=== PATIENT | female | born 1950 | race Caucasian/White ===

== ENCOUNTER → 2016-06-25 | Outpatient (CLI) | payer MEDICAID ==
--- NOTE | 2016-06-25 15:30 | US ---
EXAMINATION TYPE: US kidneys/renal and bladder DATE OF EXAM: 06/25/2016 3:13 PM COMPARISON: No previous CLINICAL HISTORY: R01.1 Cardiac murmur, N18.3 CKD. CKD stage 3 EXAM MEASUREMENTS: Right Kidney: 9.2 x 3.8 x 5.3 cm Left Kidney: 10.7 x 5.3 x 4.8 cm Right Kidney: wnl Left Kidney: wnl Bladder: wnl Bilateral Jets seen: yes There is no evidence for hydronephrosis at this point in time. No nephrolithiasis is seen. No nic s are identified. The urinary bladder is anechoic. Bilateral ureteral jets are seen. IMPRESSION: Normal renal ultrasound.
--- NOTE | 2016-06-26 07:29 | ECHOF ---
Referral Reason:R01.1 Cardiac murmur MEASUREMENTS -------- HEIGHT: 165.1 cm WEIGHT: 74.4 kg BP: 122/82 RVIDd: 3.5 cm (< 3.3) IVSd: 1.5 cm (0.6 - 1.1) LVIDd: 3.5 cm (3.9 - 5.3) LVPWd: 1.2 cm (0.6 - 1.1) IVSs: 1.8 cm LVIDs: 2.2 cm LVPWs: 1.5 cm LA Diam: 2.9 cm (2.7 - 3.8) LAESV Index (A-L): 24.51 ml/m Ao Diam: 2.9 cm (2.0 - 3.7) AV Cusp: 1.4 cm (1.5 - 2.6) LA Diam: 2.8 cm (2.7 - 3.8) MV EXCURSION: 14.317 mm (> 18.000) MV EF SLOPE: 53 mm/s (70 - 150) EPSS: 0.4 cm MV E Janes: 0.71 m/s MV DecT: 303 ms MV A Janes: 0.89 m/s MV E/A Ratio: 0.80 AV maxP.53 mmHg AV meanP.99 mmHg RAP: 5.00 mmHg FINDINGS -------- Sinus rhythm. This was a technically good study. There is moderate concentric left ventricular hypertrophy. Overall left ventricular systolic function is normal with, an EF between 55 - 60 %. The right ventricle is mildly enlarged. Normal LA size by volume 22+/-6 ml/m2. The right atrium is normal in size. Aortic valve is trileaflet and is mildly thickened. Peak/mean gradient across the Aortic Valve is 12.53mmHg / 5.99mmHg. The mitral valve leaflets are mildly thickened. Mild mitral annular calcification present. There is trace mitral regurgitation. Mild tricuspid regurgitation present. Right ventricular systolic pressure is normal at < 35 mmHg. Trace/mild (physiologic) pulmonic regurgitation. The aortic root size is normal. Normal inferior vena cava with normal inspiratory collapse consistent with estimated right atrial pressure of 5 mmHg. There is no pericardial effusion. CONCLUSIONS -------- 1. Sinus rhythm. 2. The mitral valve leaflets are mildly thickened. 3. Mild mitral annular calcification present. 4. There is trace mitral regurgitation. 5. Mild tricuspid regurgitation present. 6. Right ventricular systolic pressure is normal at < 35 mmHg. 7. The aortic root size is normal. 8. Normal inferior vena cava with normal inspiratory collapse consistent with estimated right atrial pressure of 5 mmHg. 9. There is no pericardial effusion. 10. This was a technically good study. 11. There is moderate concentric left ventricular hypertrophy. 12. Overall left ventricular systolic function is normal with, an EF between 55 - 60 %. 13. The right ventricle is mildly enlarged. 14. Normal LA size by volume 22+/-6 ml/m2. 15. The right atrium is normal in size. 16. Aortic valve is trileaflet and is mildly thickened. 17. Peak/mean gradient across the Aortic Valve is 12.53mmHg / 5.99mmHg. CELLULAR TOWER CLIMBER: Phyllis Foster RDCS
== END | disposition home or self-care (01) ==
LOC: RADUSMAIN 14:50
PROVIDERS: ATTEND Family Medicine
DX: N18.3 Chronic kidney disease, stage 3 (moderate) (principal); I08.1 Rheumatic disorders of both mitral and tricuspid valves
CPT/HCPCS: 76770; 93306

== ENCOUNTER 2016-07-24 19:01 | Observation (INO) | payer MEDICAID ==
[2016-07-24] MEDS ORDERED: MORPHINE SULFATE 4 MG/ML SYRINGE IV STA (19:27)
[2016-07-24] MEDS ORDERED: SODIUM CHLORIDE 0.9% 1,000 ML IV STA (19:27)
--- NOTE | 2016-07-24 19:31 | ED ---
General Adult HPI - General Chief complaint: Chest Pain Stated complaint: chest pain Time Seen by Provider: 07/24/16 19:14 Source: patient, RN notes reviewed Mode of arrival: wheelchair Limitations: no limitations - History of Present Illness Initial comments: Patient is a pleasant 66-year-old female presenting to emergency Department with chest discomfort. Onset was around 2:00. Symptoms have been persistent. Symptoms are somewhat severe. Patient was nauseated earlier. Patient feels slightly short of breath. No diaphoresis. No history of similar symptoms previously. Discomfort is described as tightness. Discomfort is the right side of the chest. Discomfort remained will be somewhat in the abdomen. Patient states there is some mild radiation towards the back as well. - Related Data Home Medications Medication Instructions Recorded Confirmed Aspirin EC [Ecotrin Low Dose] 81 mg PO DAILY 07/24/16 07/24/16 Chlorthalidone 25 mg PO DAILY 07/24/16 07/24/16 Allergies Allergy/AdvReac Type Severity Reaction Status Date / Time No Known Allergies Allergy Verified 07/24/16 19:42 Review of Systems ROS Statement: Those systems with pertinent positive or pertinent negative responses have been documented in the HPI. ROS Other: All systems not noted in ROS Statement are negative. Constitutional: Denies: fever Eyes: Denies: eye pain ENT: Denies: ear pain Respiratory: Reports: dyspnea. Denies: cough Cardiovascular: Reports: chest pain Endocrine: Denies: fatigue Gastrointestinal: Reports: abdominal pain Genitourinary: Denies: dysuria Musculoskeletal: Denies: back pain Skin: Denies: rash Neurological: Denies: weakness Past Medical History Past Medical History: Hypertension, Thyroid Disorder History of Any Multi-Drug Resistant Organisms: None Reported Additional Past Surgical History / Comment(s): thyroid Past Psychological History: No Psychological Hx Reported Smoking Status: Never smoker Past Alcohol Use History: Rare Past Drug Use History: None Reported General Exam Limitations: no limitations General appearance: alert, in no apparent distress Head exam: Present: atraumatic Eye exam: Present: normal appearance, PERRL ENT exam: Present: normal oropharynx Neck exam: Present: normal inspection Respiratory exam: Present: normal lung sounds bilaterally Cardiovascular Exam: Present: regular rate, normal rhythm Expanded Peripheral pulses: 2+: Radial (R), Radial (L), Dorsalis Pedis (R), Dorsalis Pedis (L) GI/Abdominal exam: Present: soft, tenderness (Mild epigastric tenderness to palpation), normal bowel sounds. Absent: distended, guarding, rebound, rigid, pulsatile mass Extremities exam: Present: normal inspection. Absent: pedal edema, calf tenderness Back exam: Present: normal inspection. Absent: tenderness Neurological exam: Present: alert Psychiatric exam: Present: normal affect, normal mood Skin exam: Absent: rash Course Vital Signs 07/24/16 07/24/16 07/24/16 19:06 19:39 20:09 Temperature 98.4 F Pulse Rate 89 68 Respiratory 20 16 16 Rate Blood Pressure 176/92 158/78 O2 Sat by Pulse 97 98 Oximetry EKG Findings - EKG Comments: EKG Findings:: Normal sinus rhythm at 78. MS 174. QRS 82. QT 398. QTC 453. Normal axis. Normal QRS. Nonspecific ST-T. Medical Decision Making - Medical Decision Making Patient reexamined and resting comfortably in bed. Patient and family updated. Case was discussed in detail with Dr. Coleman, who will admit his patient. - Lab Data Result diagrams: 07/24/16 19:35 07/24/16 19:35 Lab Results 07/24/16 07/24/16 07/24/16 Range/Units 19:35 19:35 19:35 WBC 8.7 (3.8-10.6) k/uL RBC 4.25 (3.80-5.40) m/uL Hgb 12.9 (11.4-16.0) gm/dL Hct 37.8 (34.0-46.0) % MCV 89.0 (80.0-100.0) fL MCH 30.3 (25.0-35.0) pg MCHC 34.1 (31.0-37.0) g/dL RDW 13.0 (11.5-15.5) % Plt Count 262 (150-450) k/uL Neutrophils % 77 % Lymphocytes % 17 % Monocytes % 4 % Eosinophils % 0 % Basophils % 0 % Neutrophils # 6.7 (1.3-7.7) k/uL Lymphocytes # 1.5 (1.0-4.8) k/uL Monocytes # 0.3 (0-1.0) k/uL Eosinophils # 0.0 (0-0.7) k/uL Basophils # 0.0 (0-0.2) k/uL PT (9.0-12.0) sec INR (<1.1) APTT (22.0-30.0) sec D-Dimer (<0.60) mg/L FEU Sodium 136 L (137-145) mmol/L Potassium 3.1 L (3.5-5.1) mmol/L Chloride 97 L (98-107) mmol/L Carbon Dioxide 29 (22-30) mmol/L Anion Gap 10 mmol/L BUN 24 H (7-17) mg/dL Creatinine 1.11 H (0.52-1.04) mg/dL Est GFR (MDRD) Af Amer 60 (>60 ml/min/1.73 sqM) Est GFR (MDRD) Non-Af 49 (>60 ml/min/1.73 sqM) Glucose 154 H (74-99) mg/dL Calcium 10.6 H (8.4-10.2) mg/dL Magnesium 1.8 (1.6-2.3) mg/dL Total Bilirubin 0.6 (0.2-1.3) mg/dL AST 19 (14-36) U/L ALT 29 (9-52) U/L Alkaline Phosphatase 93 (38-126) U/L Total Creatine Kinase 68 (30-135) U/L CK-MB (CK-2) 1.4 (0.0-2.4) ng/mL CK-MB (CK-2) Rel Index 2.1 Troponin I <0.012 (0.000-0.034) ng/mL Total Protein 6.9 (6.3-8.2) g/dL Albumin 4.2 (3.5-5.0) g/dL Amylase 91 (30-110) U/L Lipase 121 (23-300) U/L 07/24/16 Range/Units 19:35 WBC (3.8-10.6) k/uL RBC (3.80-5.40) m/uL Hgb (11.4-16.0) gm/dL Hct (34.0-46.0) % MCV (80.0-100.0) fL MCH (25.0-35.0) pg MCHC (31.0-37.0) g/dL RDW (11.5-15.5) % Plt Count (150-450) k/uL Neutrophils % % Lymphocytes % % Monocytes % % Eosinophils % % Basophils % % Neutrophils # (1.3-7.7) k/uL Lymphocytes # (1.0-4.8) k/uL Monocytes # (0-1.0) k/uL Eosinophils # (0-0.7) k/uL Basophils # (0-0.2) k/uL PT 11.6 (9.0-12.0) sec INR 1.2 (<1.1) APTT 22.9 (22.0-30.0) sec D-Dimer 0.57 (<0.60) mg/L FEU Sodium (137-145) mmol/L Potassium (3.5-5.1) mmol/L Chloride (98-107) mmol/L Carbon Dioxide (22-30) mmol/L Anion Gap mmol/L BUN (7-17) mg/dL Creatinine (0.52-1.04) mg/dL Est GFR (MDRD) Af Amer (>60 ml/min/1.73 sqM) Est GFR (MDRD) Non-Af (>60 ml/min/1.73 sqM) Glucose (74-99) mg/dL Calcium (8.4-10.2) mg/dL Magnesium (1.6-2.3) mg/dL Total Bilirubin (0.2-1.3) mg/dL AST (14-36) U/L ALT (9-52) U/L Alkaline Phosphatase (38-126) U/L Total Creatine Kinase (30-135) U/L CK-MB (CK-2) (0.0-2.4) ng/mL CK-MB (CK-2) Rel Index Troponin I (0.000-0.034) ng/mL Total Protein (6.3-8.2) g/dL Albumin (3.5-5.0) g/dL Amylase (30-110) U/L Lipase (23-300) U/L - Radiology Data Radiology results: image reviewed (Chest x-ray shows no acute process) Disposition Clinical Impression: Chest pain Disposition: ADMITTED IP TO THIS HOSP
[2016-07-24 19:50] LABS: Basophils % (A) 0 %; CH 31.4; CHCM 35.4; Eosinophils % (A) 0 %; HCT 37.8 % (34.0-46.0); HDW 2.72; HGB 12.9 gm/dL (11.4-16.0); Luc # (Auto) 0.11; Luc % (Auto) 1; Lymphocytes # (A) 1.5 k/uL (1.0-4.8); Lymphocytes % (A) 17 %; MCH 30.3 pg (25.0-35.0); MCHC 34.1 g/dL (31.0-37.0); Mean Platelet Volume 6.9; Monocytes # (A) 0.3 k/uL (0-1.0); Monocytes % (A) 4 %; Neutrophils # (A) 6.7 k/uL (1.3-7.7); Neutrophils % (A) 77 %; RBC 4.25 m/uL (3.80-5.40); WBC 8.7 k/uL (3.8-10.6); WBC (Perox) 8.99
[2016-07-24 20:04] LABS: INR 1.2 (<1.1); Partial Thromboplastin Time 22.9 sec (22.0-30.0); Prothrombin Time 11.6 sec (9.0-12.0)
--- NOTE | 2016-07-24 20:06 | XR ---
EXAMINATION TYPE: XR chest 2V DATE OF EXAM: 07/24/2016 7:52 PM COMPARISON: NONE INDICATION: Chest pain TECHNIQUE: Single frontal view of the chest is obtained. FINDINGS: The heart size is normal. The pulmonary vasculature is normal. The lungs are clear. IMPRESSION: 1. No acute pulmonary process.
[2016-07-24 20:08] LABS: Creatine Kinase 68 U/L (30-135)
[2016-07-24 20:10] LABS: Calcium 10.6 mg/dL (8.4-10.2); Magnesium 1.8 mg/dL (1.6-2.3); Potassium 3.1 mmol/L (3.5-5.1); Total Bilirubin 0.6 mg/dL (0.2-1.3); Total Protein 6.9 g/dL (6.3-8.2)
[2016-07-24 20:21] LABS: Creatine Kinase MB 1.4 ng/mL (0.0-2.4); Troponin I <0.012 ng/mL (0.000-0.034)
[2016-07-24] MEDS ORDERED: POTASSIUM CHLORIDE ER 20 MEQ TAB.ER PO STA (20:44)
[2016-07-24] MEDS ORDERED: ASPIRIN 81 MG CHEW PO STA (20:45)
[2016-07-24] MEDS ORDERED: NITROGLYCERIN SL TABS 0.4 MG TAB SUBLINGUAL PRN (20:45)
[2016-07-24] MEDS ORDERED: ONDANSETRON 4 MG/2 ML VIAL IVP STA (21:01)
[2016-07-24] MEDS ORDERED: RX INFO: IV CONTRAST WAS GIVEN 1 EACH MISC MISCELLANE PRN (21:08)
--- NOTE | 2016-07-24 21:43 | CT ---
CT CHEST FOR PULMONARY EMBOLISM. EXAMINATION TYPE: CT angio chest DATE OF EXAM: 07/24/2016 9:35 PM INDICATION: Pt states of chest pain and SOB. CT DLP: 213.9 mGycm, Automated exposure control for dose reduction was used. CONTRAST: Patient injected with 80 mL of Visipaque 320. COMPARISON: NONE TECHNIQUE: CT of the chest is performed on a spiral scan at 2 mm thick sections. Study is performed with intravenous contrast timed for evaluation for pulmonary embolism. This will limit additional po rtions of the evaluation. 3-D MIP images reconstructed by the technologist are reviewed on the compu ter in the coronal and sagittal planes. FINDINGS: No persistent filling defects are evident to suggest an acute pulmonary embolism. No mediastinal or hilar adenopathy enlarged by CT criteria is evident. The ascending aorta diameter at the level of the main pulmonary artery is 4.3 cm. The main pulmonary artery diameter at the bifur cation is 3.1 cm. No obvious dissection of the aorta is evident. Lung windows are clear. There is a small hiatal hernia. Limited CT section through the upper abdomen are unremarkable. Thyroid is somewhat heterogenous. IMPRESSIONS: 1. No acute pulmonary embolism. 2. Hiatal hernia. 3. Aneurysmal dilatation of the ascending thoracic aorta at 4.3 cm.
[2016-07-24 21:51] VITALS: BMI 27.4
[2016-07-24] MEDS ORDERED: ACETAMINOPHEN TAB 325 MG TAB PO PRN (22:26)
[2016-07-24] MEDS ORDERED: HYDROcodone/APAP 5-325MG 1 EACH TAB PO PRN (22:27)
[2016-07-24] MEDS ORDERED: HYDROmorphone 1 MG/ML 1 ML SYRINGE IVP PRN (22:28)
[2016-07-24] MEDS ORDERED: ONDANSETRON 4 MG/2 ML VIAL IVP PRN (22:29)
[2016-07-24] MEDS: NITROGLYCERIN OINT 1 INCH/GM PACKET TOPICAL SCH (23:25)
[2016-07-25 02:12] LABS: Creatine Kinase 56 U/L (30-135)
[2016-07-25 02:25] LABS: Creatine Kinase MB 1.7 ng/mL (0.0-2.4); Troponin I <0.012 ng/mL (0.000-0.034)
[2016-07-25] MEDS: NITROGLYCERIN OINT 1 INCH/GM PACKET TOPICAL SCH ×2 (05:14→11:56)
[2016-07-25 07:28] VITALS: RESP 18
[2016-07-25 07:50] LABS: Potassium 3.8 mmol/L (3.5-5.1)
--- NOTE | 2016-07-25 08:05 | US ---
EXAMINATION TYPE: US gallbladder DATE OF EXAM: 07/25/2016 7:54 AM COMPARISON: NONE CLINICAL HISTORY: pain. RUQ pain, nausea EXAM MEASUREMENTS: Liver Length: 17.2 cm Gallbladder Wall: 0.6 cm CBD: 0.6 cm Right Kidney: 10.2 x 4.0 x 5.0 cm Pancreas: Head and body appear normal. Tail of pancreas obscured by bowel gas. Liver: heterogeneous hyperechoic area = 3.5 x 2.8 x 3.0cm findings can reflect a hemangioma in th e proper clinical setting. Other etiologies are not excluded at this time. Gallbladder: mobile stones, thickened GB wall Evidence for sonographic Lin's sign: Yes CBD: upper limits of normal Right Kidney: no evidence of hydronephrosis or mass IMPRESSION: 1. Cholelithiasis with thickened gallbladder wall of 0.58 cm. Findings could correlate with acute cho lecystitis. Clinical correlation and follow-up is recommended. 2. Probable hemangioma within the liver. Confirmation with contrast CT is recommended. Other etiologi es are not excluded at this time
[2016-07-25 08:08] LABS: Creatine Kinase 50 U/L (30-135)
[2016-07-25 08:20] LABS: Creatine Kinase MB 1.6 ng/mL (0.0-2.4); Troponin I <0.012 ng/mL (0.000-0.034)
--- NOTE | 2016-07-25 08:20 | P.CRDCN ---
History of Present Illness Consult date: 07/25/16 History of present illness: This is a 66-year-old female with history of hypertensive cardiovascular disease who was being treated with Cozaar and also diuretic who came to the hospital with complaints of stabbing pain in the right upper quadrant and also in the right breast area. It was constant from 2:00 and midnight. It was not respirophasic. It did not change with movements of the chest. Mildly nauseated. No shortness of breath. Since been that patient has been stable. She does have some tenderness in the right upper quadrant. Cardiac enzymes are negative. EKG did not reveal any acute changes. Ultrasound of the abdomen showed evidence of cholelithiasis and possible cholecystitis. She had an echocardiogram done in June which showed evidence of mild aortic stenosis with preserved LV function. At this point, her pains are more consistent with gallbladder issue . May need a surgical evaluation. Review of Systems REVIEW OF SYSTEMS: CONSTITUTIONAL:. Patient is doing well. No complaints of fever or chills EYES: Denies diplopia, blurring of vision EARS, NOSE, MOUTH, THROAT: Denies headaches, denies sore throat. CARDIOVASCULAR: As per HPI RESPIRATORY: Denies shortness of breath, denies cough. GASTROINTESTINAL: Complaints of abdominal pain GENITOURINARY: Denies hematuria, denies infections. MUSKULOSKELETAL: Denies pain, denies swelling. Denies any cramps or claudication INTEGUMENTARY: Denies rash, denies eczema. NEUROLOGICAL: Denies focal weakness, or visual disturbance. Denies any dizziness or syncope PSYCHIATRIC: Denies anxiety, denies depression. HEMATOLOGIC/LYMPHATIC: Denies any bleeding, denies enlarged lymph nodes. Past Medical History Past Medical History: Hypertension, Thyroid Disorder Additional Past Medical History / Comment(s): IBS, murmer, seasonal asthma History of Any Multi-Drug Resistant Organisms: None Reported Past Surgical History: Tonsillectomy Additional Past Surgical History / Comment(s): thyroid Past Anesthesia/Blood Transfusion Reactions: No Reported Reaction Past Psychological History: No Psychological Hx Reported Smoking Status: Never smoker Past Alcohol Use History: Rare Past Drug Use History: None Reported - Past Family History Mother Family Medical History: AFIB, Diabetes Mellitus Medications and Allergies Home Medications Medication Instructions Recorded Confirmed Type Aspirin EC [Ecotrin Low Dose] 81 mg PO DAILY 07/24/16 07/24/16 History Chlorthalidone 25 mg PO DAILY 07/24/16 07/24/16 History Allergies Allergy/AdvReac Type Severity Reaction Status Date / Time No Known Allergies Allergy Verified 07/24/16 21:52 Physical Exam Vitals: Vital Signs Temp Pulse Resp BP Pulse Ox 07/25/16 07:27 99.0 F 83 18 131/72 95 07/25/16 03:47 76 16 07/25/16 03:46 99.3 F 76 16 129/80 96 07/24/16 23:20 70 18 07/24/16 21:40 98.2 F 62 18 163/82 96 Intake and Output 07/24/16 07/25/16 07/25/16 22:59 06:59 14:59 Intake Total 300 800 Balance 300 800 Intake: Intake, IV Titration 200 800 Amount Sodium Chloride 0.9% 1, 200 800 000 ml @ 100 mls/hr IV . Q10H STA Rx#:[id number] Oral 100 Other: Voiding Method Toilet # Voids 1 Weight 74.843 kg GENERAL EXAM: Patient is alert and oriented and doesn't appear to be in any acute distress HEENT: Normocephalic. Normal reaction of pupils, equal size, normal range of extraocular motion. No erythema or exudates in the throat. NECK: No masses, no nuchal rigidity. CHEST: No chest wall deformity. LUNGS: Equal air entry with no crackles or wheeze. HEART: S1 and S2 normal with no audible mumurs or gallops. Regular rhythm, femorals equal on both sides.. ABDOMEN: Tenderness in the right upper quadrant SKIN: No rashes CENTRAL NERVOUS SYSTEM: No focal deficits. EXTREMITIES: No cyanosis, clubbing or edema. Results 07/24/16 19:35 07/25/16 06:18 Cardiac Enzymes 07/25/16 Range/Units 01:31 CK-MB (CK-2) 1.7 (0.0-2.4) ng/mL Troponin I <0.012 (0.000-0.034) ng/mL Lipids 07/25/16 Range/Units 06:18 Triglycerides 42 (<150) mg/dL Cholesterol 149 (<200) mg/dL HDL Cholesterol 65 H (40-60) mg/dL Comprehensive Metabolic Panel 07/25/16 Range/Units 06:18 Sodium 138 (137-145) mmol/L Potassium 3.8 (3.5-5.1) mmol/L Chloride 102 (98-107) mmol/L Carbon Dioxide 30 (22-30) mmol/L Current Medications Generic Name Dose Route Start Last Admin Trade Name Freq PRN Reason Stop Dose Admin Acetaminophen 650 mg 07/24/16 22:26 Tylenol Tab PO Q8HR PRN Fever and/ or Pain Hydrocodone Bitart/Acetaminophen 1 each 07/24/16 22:27 [place] 5-325 PO Q4HR PRN Pain Aspirin 325 mg 07/25/16 09:00 Aspirin PO DAILY ELIZABETH Hydromorphone HCl 1 mg 07/24/16 22:28 Dilaudid IVP Q4HR PRN severe pain 5-10 IF NPO Miscellaneous Information 1 each 07/24/16 21:08 Rx Info: Iv Contrast Was Given MISCELLANE 07/26/16 21:08 DAILY PRN Per Protocol Nitroglycerin 1 inch 07/25/16 00:00 07/25/16 05:14 Nitro-Bid Oint TOPICAL Not Given Q6HR [facility] Nitroglycerin 0.4 mg 07/24/16 20:45 Nitrostat SUBLINGUAL Q5M PRN Chest Pain Ondansetron HCl 4 mg 07/24/16 22:29 Zofran IVP Q6HR PRN Nausea And Vomiting Intake and Output 07/24/16 07/25/16 07/25/16 22:59 06:59 14:59 Intake Total 300 800 Balance 300 800 Intake: Intake, IV Titration 200 800 Amount Sodium Chloride 0.9% 1, 200 800 000 ml @ 100 mls/hr IV . Q10H STA Rx#:[id number] Oral 100 Other: Voiding Method Toilet # Voids 1 Weight 74.843 kg 07/25/16 06:18 EKG Interpretations (text) Sinus rhythm Assessment and Plan (1) Right upper quadrant pain Status: Acute (2) Cholecystitis Status: Acute (3) Hypertension Status: Acute (4) Hypokalemia Status: Acute (5) Aneurysm of ascending aorta Status: Acute Plan: Patient's symptoms are suggestive of cholecystitis. EKGs and cardiac enzymes studies are within normal limits. Patient does have systolic murmur consistent with mild aortic stenosis. Patient did have an echocardiogram in June of this year which he given a mild gradient across the aortic valve with preserved LV function. Aortic valve is tricuspid. Computed tomography scan of the chest showed mild aneurysm of the ascending aorta. No further cardiac workup at this time. Thank you
[2016-07-25] MEDS ORDERED: ASPIRIN 325 MG TAB PO SCH (09:00)
--- NOTE | 2016-07-25 11:34 | ECHOF ---
Referral Reason:ATTN: ascending aorta MEASUREMENTS -------- HEIGHT: 165.1 cm WEIGHT: 74.8 kg BP: IVSd: 1.6 cm (0.6 - 1.1) LVIDd: 3.7 cm (3.9 - 5.3) LVPWd: 1.0 cm (0.6 - 1.1) IVSs: 1.7 cm LVIDs: 1.9 cm LVPWs: 1.1 cm LAESV Index (A-L): 24.92 ml/m Ao Diam: 3.8 cm (2.0 - 3.7) AV Cusp: 2.2 cm (1.5 - 2.6) LA Diam: 3.5 cm (2.7 - 3.8) MV EXCURSION: 16.659 mm (> 18.000) MV EF SLOPE: 96 mm/s (70 - 150) EPSS: 0.2 cm MV E Janes: 0.91 m/s MV DecT: 166 ms MV A Janes: 1.03 m/s MV E/A Ratio: 0.89 AV maxP.76 mmHg AV meanP.91 mmHg RAP: 5.00 mmHg RVSP: 31.62 mmHg FINDINGS -------- Sinus rhythm. This was a technically adequate study. There is moderate concentric left ventricular hypertrophy. Overall left ventricular systolic function is normal with, an EF between 55 - 60 %. The right ventricle is normal in size. Normal LA size by volume 22+/-6 ml/m2. The right atrial size is normal. Peak/mean gradient across the Aortic Valve is 19.76mmHg / 10.91mmHg. Mild mitral annular calcification present. Mild mitral regurgitation is present. Mild tricuspid regurgitation present. There is no evidence of pulmonary hypertension. The right ventricular systolic pressure, as measured by Doppler, is 31.62mmHg. There is no pulmonic regurgitation present. Dilatation of the Ascending Aortic measures 4.cm. Echo free space may represent effusion or a pericardial fat pad. CONCLUSIONS -------- 1. There is moderate concentric left ventricular hypertrophy. 2. Dilatation of the Ascending Aortic measures 4.cm. 3. Overall left ventricular systolic function is normal with, an EF between 55 - 60 %. 4. Normal LA size by volume 22+/-6 ml/m2. 5. Peak/mean gradient across the Aortic Valve is 19.76mmHg / 10.91mmHg. 6. Mild mitral annular calcification present. 7. Mild mitral regurgitation is present. 8. Mild tricuspid regurgitation present. 9. There is no evidence of pulmonary hypertension. 10. The right ventricular systolic pressure, as measured by Doppler, is 31.62mmHg. JAILER/TRAINING OFFICER: Shirley Campo RDCS
[2016-07-25 11:44] VITALS: BP 140/72; PULSE 87; TEMP 98.9
--- NOTE | 2016-07-26 10:15 | HP ---
DATE OF ADMISSION: CHIEF COMPLAINT: Chest and abdominal pain. HISTORY OF PRESENT ILLNESS: This is the first known admission for this 66-year-old white female with hypertension. She stopped taking Cozaar when her blood pressure was low and 4 days later she developed abdominal pain, came to emergency room where she had an elevated blood pressure. Her discomfort was more in the epigastric area and ultrasound suggested she has gallbladder disease. Incidentally, her CT suggests some dilatation of the ascending aorta. She does have a murmur. REVIEW OF SYSTEMS: She has had no syncope, change in vision or hearing, cough, hemoptysis, chest pain, orthopnea, PND, hematemesis, melena, hematochezia, jaundice, urinary complaints, etc. She has stage II renal failure. Past medical history, family history and personal and social histories are all otherwise unremarkable and noncontributory. She is on a diuretic and her potassium was slightly low as well. PHYSICAL EXAMINATION: Blood pressure was 176/98. HEENT is normal and the chest is clear. Cardiac exam reveals a fairly loud 3 to 4/6 intensity with radiation into the carotids. Abdomen is soft and nontender and extremities are normal. Neurologically, she is intact. IMPRESSION: 1. Epigastric pain. 2. Gallbladder disease. 3. Hypertension. 4. Cardiac murmur. 5. Possibly dilated aortic root in the ascending aorta. 6. Mild renal failure. PLAN: 1. Bed rest. 2. IV fluids. 3. Work-up epigastric pain. 4. Control hypertension.
--- NOTE | 2016-07-26 10:21 | DS ---
DATE OF ADMISSION: 07/24/2016 DATE OF DISCHARGE: 07/25/2016 CHIEF COMPLAINT: Chest and abdominal pain. History of present illness and physical exam: The details of this lady's history and physical can be found in the initial work-up. LABORATORY STUDIES: While she was in the hospital, she had laboratory studies, the details of which can be found in the laboratory section on the chart. COURSE IN THE HOSPITAL: After admission, she was placed on bed rest, started on intravenous fluids and blood pressure ( ). She will be referred to Surgery after leaving the hospital for her gallbladder and will also have her ascending aorta evaluated as an outpatient. FINAL DIAGNOSES: 1. Epigastric pain. 2. Cholecystitis and cholelithiasis. 3. Chest pain. 4. Dilated ascending aorta. 5. Hypertension. 6. Renal failure. 7. Hyperlipidemia. OPERATIONS: None. She is improved.
== END 2016-07-25 13:35 | disposition home or self-care (01) ==
LOC: EC 19:01 → 3OBS 20:45
PROVIDERS: ADMIT Family Medicine; ATTEND Family Medicine
DX: R10.13 Epigastric pain (principal); E87.6 Hypokalemia; R07.89 Other chest pain; K80.10 Calculus of gallbladder with chronic cholecystitis without obstruction; R10.11 Right upper quadrant pain; K58.9 Irritable bowel syndrome, unspecified; I10 Essential (primary) hypertension; I71.2 Thoracic aortic aneurysm, without rupture; N19 Unspecified kidney failure; E78.5 Hyperlipidemia, unspecified; Z79.82 Long term (current) use of aspirin; Z79.899 Other long term (current) drug therapy; Z83.3 Family history of diabetes mellitus
CPT/HCPCS: 96361 ×3; 96374 ×2; 96375 ×2; 99285 ×2; 36415; 94760; 93005; 93306; 85379; 80051; 80061; 80053; 82150; 82550 ×2; 82553 ×2; 83690; 83735; 84484 ×2; 85025; 85610; 85730; 71020; 76705; 71275; G0378 ×2; J2270; Q9967; J2405

== ENCOUNTER 2016-07-26 10:12 | Inpatient (IN) | payer MEDICAID ==
[2016-07-26] MEDS ORDERED: ceFAZolin 1,000 MG in DEXTROSE/WATER 1 50ML.BAG IVPB SCH (12:00)
[2016-07-26] MEDS: HYDROmorphone 1 MG/ML 1 ML SYRINGE IVP PRN ×2 (12:40→19:25)
[2016-07-26] MEDS: ONDANSETRON 4 MG/2 ML VIAL IVP PRN ×2 (12:42→19:24)
[2016-07-26] MEDS: DEXTROSE 5%-0.45% NACL 1,000 ML IV SCH ×3 (12:53→22:48)
[2016-07-26] MEDS ORDERED: metroNIDAZOLE 500 MG TAB PO SCH (13:00)
[2016-07-26] MEDS: metroNIDAZOLE-NS PMX 500 MG in SALINE 1 100ML.BAG IVPB SCH ×2 (15:06→21:32)
[2016-07-26 15:21] LABS: Basophils % (A) 0 %; CH 30.7; CHCM 34.5; Eosinophils % (A) 0 %; HCT 33.5 % (34.0-46.0); HDW 2.85; HGB 11.7 gm/dL (11.4-16.0); Luc # (Auto) 0.13; Luc % (Auto) 1; Lymphocytes # (A) 0.4 k/uL (1.0-4.8); Lymphocytes % (A) 3 %; MCH 31.3 pg (25.0-35.0); MCV 89.3 fL (80.0-100.0); Monocytes # (A) 0.9 k/uL (0-1.0); Monocytes % (A) 5 %; Neutrophils # (A) 15.5 k/uL (1.3-7.7); Neutrophils % (A) 91 %; RBC 3.75 m/uL (3.80-5.40); RDW 12.8 % (11.5-15.5); WBC (Perox) 18.09
[2016-07-26 15:37] LABS: Calcium 8.6 mg/dL (8.4-10.2)
[2016-07-26 15:40] LABS: Potassium 2.7 mmol/L (3.5-5.1)
--- NOTE | 2016-07-26 16:00 | XR ---
EXAMINATION TYPE: XR chest 2V DATE OF EXAM: 07/26/2016 3:55 PM COMPARISON: 07/24/2016 TECHNIQUE: PA and lateral views submitted. HISTORY: Chest pain FINDINGS: Heart size is stable. There is subsegmental changes at the left lung base. No interstitial edema. No pneumothorax. IMPRESSION: 1. Left lower lobe atelectasis favored over pneumonia. Correlate clinically.
[2016-07-26] MEDS ORDERED: Potassium Replacement Protocol 1 EACH MISC MISCELLANE PRN (16:37)
--- NOTE | 2016-07-26 17:04 | P.GSCN ---
History of Present Illness Consult date: 07/26/16 Reason for Consult: acute cholecystitis History of present illness: patient hospitalized with the complaints of right-sided chest pain and abdominal pain. The pain does radiate to the back. she was placed in observation on Tuesday evening and then discharged yesterday with atypical chest pain. cardiac workup was negative at that time. she has had episodes of nausea and vomiting. she did feel better but then her pain returned last night. denies any change in the color of her skin urine or stool. denies rectal bleeding or melena. she had a CAT scan of the chest which showed some distention of the gallbladder. she had an ultrasound performed which showed gallstones and a thickened gallbladder wall with a sonographic Lin sign present. no melanotic stools or rectal bleeding. pain persists at this time although improved. she is on IV antibiotics. Blood cultures are pending. Her comprehensive metabolic profile over the weekend was normal. this was not checked earlier today. Review of Systems The patient denies any acute changes in his vision or hearing, no dysphagia or odynophagia, no shortness of breath, no dysuria or hematuria, no headache, no runny nose, no rectal bleeding or melena, no unexplained weight loss Past Medical History Past Medical History: Hypertension, Thyroid Disorder Additional Past Medical History / Comment(s): Pt recently admitted to [facility] on with cholecystitis/cholelithiasis. Other HX: IBS, murmer, seasonal asthma, back pain, rectal polyp History of Any Multi-Drug Resistant Organisms: None Reported Past Surgical History: Tonsillectomy Additional Past Surgical History / Comment(s): Partial thyroidectomy r/t benign tumor, colonoscopy. Past Anesthesia/Blood Transfusion Reactions: No Reported Reaction Past Psychological History: No Psychological Hx Reported Additional Psychological History / Comment(s): Pt resides with her . She is normally independent. Smoking Status: Never smoker Past Alcohol Use History: Rare Past Drug Use History: None Reported - Past Family History Mother Family Medical History: AFIB, Diabetes Mellitus Father Family Medical History: CVA/TIA Additional Family Medical History / Comment(s): Father at the age of 76yrs from a probable CVA. Medications and Allergies Home Medications Medication Instructions Recorded Confirmed Type Aspirin EC [Ecotrin Low Dose] 81 mg PO DAILY 07/24/16 07/26/16 History Chlorthalidone 25 mg PO DAILY 07/24/16 07/26/16 History Allergies Allergy/AdvReac Type Severity Reaction Status Date / Time No Known Allergies Allergy Verified 07/26/16 10:56 Surgical - Exam Vital Signs Pulse Ox 93 L 07/26/16 11:11 Physical exam: General: Well-developed, well-nourished HEENT: Normocephalic, sclerae nonicteric Abdomen: epigastric tenderness, mild right upper quadrant tenderness, nondistended Extremities: No edema Neuro: Alert and oriented Results - Labs 07/26/16 15:07 07/26/16 15:07 Abnormal Lab Results - Last 24 Hours (Table) 07/26/16 07/26/16 Range/Units 15:07 15:07 WBC 17.0 H (3.8-10.6) k/uL RBC 3.75 L (3.80-5.40) m/uL Hct 33.5 L (34.0-46.0) % Neutrophils # 15.5 H (1.3-7.7) k/uL Lymphocytes # 0.4 L (1.0-4.8) k/uL Sodium 136 L (137-145) mmol/L Potassium 2.7 L* (3.5-5.1) mmol/L Chloride 97 L (98-107) mmol/L Carbon Dioxide 34 H (22-30) mmol/L BUN 23 H (7-17) mg/dL Creatinine 1.27 H (0.52-1.04) mg/dL Glucose 142 H (74-99) mg/dL Diabetes panel 07/26/16 Range/Units 15:07 Sodium 136 L (137-145) mmol/L Potassium 2.7 L* (3.5-5.1) mmol/L Chloride 97 L (98-107) mmol/L Carbon Dioxide 34 H (22-30) mmol/L BUN 23 H (7-17) mg/dL Creatinine 1.27 H (0.52-1.04) mg/dL Glucose 142 H (74-99) mg/dL Calcium 8.6 (8.4-10.2) mg/dL Calcium panel 07/26/16 Range/Units 15:07 Calcium 8.6 (8.4-10.2) mg/dL Pituitary panel 07/26/16 Range/Units 15:07 Sodium 136 L (137-145) mmol/L Potassium 2.7 L* (3.5-5.1) mmol/L Chloride 97 L (98-107) mmol/L Carbon Dioxide 34 H (22-30) mmol/L BUN 23 H (7-17) mg/dL Creatinine 1.27 H (0.52-1.04) mg/dL Glucose 142 H (74-99) mg/dL Calcium 8.6 (8.4-10.2) mg/dL Adrenal panel 07/26/16 Range/Units 15:07 Sodium 136 L (137-145) mmol/L Potassium 2.7 L* (3.5-5.1) mmol/L Chloride 97 L (98-107) mmol/L Carbon Dioxide 34 H (22-30) mmol/L BUN 23 H (7-17) mg/dL Creatinine 1.27 H (0.52-1.04) mg/dL Glucose 142 H (74-99) mg/dL Calcium 8.6 (8.4-10.2) mg/dL Assessment and Plan (1) Cholecystitis Narrative/Plan: continue IV antibiotics for acute cholecystitis. Check comprehensive metabolic profile and will include amylase and lipase again. Currently plan laparoscopic possible open cholecystectomy tomorrow. Risks of bleeding, infection, bile leak , bile duct injury, retained common bile duct stone, conversion to an open procedure, and anesthesia related complications were discussed in detail. She understands and wishes to proceed. Status: Acute
[2016-07-26 17:14] LABS: Calcium 8.6 mg/dL (8.4-10.2); Total Bilirubin 0.9 mg/dL (0.2-1.3); Total Protein 5.3 g/dL (6.3-8.2)
[2016-07-26 17:20] LABS: Potassium 2.7 mmol/L (3.5-5.1)
[2016-07-26] MEDS: POTASSIUM CHLORIDE 10 MEQ, LIDOCAINE 2% INJ 10 MG in SODIUM CHLORIDE 0.9% 100 ML IV SCH ×3 (17:37→22:48)
[2016-07-26] MEDS: PIPERACILLIN-TAZOBACTAM 3.375 GM in DEXTROSE/WATER 1 50ML.BAG IVPB SCH (23:49)
[2016-07-27] MEDS: PIPERACILLIN-TAZOBACTAM 3.375 GM in DEXTROSE/WATER 1 50ML.BAG IVPB SCH ×4 (01:31→23:39)
[2016-07-27] MEDS: metroNIDAZOLE-NS PMX 500 MG in SALINE 1 100ML.BAG IVPB SCH ×4 (01:42→19:25)
[2016-07-27] MEDS: POTASSIUM CHLORIDE 10 MEQ, LIDOCAINE 2% INJ 10 MG in SODIUM CHLORIDE 0.9% 100 ML IVPB SCH ×2 (04:01→05:16)
--- NOTE | 2016-07-27 06:31 | HP ---
DATE OF ADMISSION: CHIEF COMPLAINT: Abdominal pain and vomiting. HISTORY OF PRESENT ILLNESS: This is a re-admission for this 66-year-old white female who was just in the hospital over the weekend for abdominal pain. He was determined this is likely on the basis of cholecystitis and cholelithiasis. She went home, but apparently immediately started to have a lot of epigastric pain with nausea and vomiting, which is intractable and she came back to the emergency room. She was admitted. She has had hematemesis. She has had no jaundice, acholic stools or dark urine. She also has an aortic stenosis murmur and a slightly dilated ascending aorta. Review of systems is unremarkable other than her abdominal pain and vomiting. Past medical history, family history and personal and social histories are all otherwise unremarkable or unchanged. Laboratory studies reveal her white count is 17,000 and her potassium is 2.7. PHYSICAL EXAMINATION: Blood pressure is low at 84/60 with a pulse of 94, respirations of 35 and temperature of 100. GENERAL: She appeared to be acutely ill. Skin was hot and dry. Head, ears, eyes, nose, mouth, and throat were normal. Neck veins are not distended. Chest is clear. Cardiac exam is normal. The abdomen is tender in the epigastrium. Bowel sounds were not heard. EXTREMITIES: Normal. NEUROLOGICAL: She is intact. IMPRESSION: 1. Acute cholecystitis. 2. Hypertension. 3. Dilated ascending aorta. PLAN: 1. Bed rest. 2. N.p.o. 3. Analgesics. 4. Antibiotics. 5. Surgery consult. 6. Consult with thoracic surgery to assess her ascending aorta.
[2016-07-27 08:08] LABS: Basophils % (A) 0 %; CH 30.8; CHCM 34.3; Eosinophils % (A) 0 %; HCT 30.1 % (34.0-46.0); HDW 2.87; HGB 10.5 gm/dL (11.4-16.0); Luc # (Auto) 0.18; Luc % (Auto) 2; Lymphocytes # (A) 0.6 k/uL (1.0-4.8); Lymphocytes % (A) 5 %; MCH 31.6 pg (25.0-35.0); MCV 90.3 fL (80.0-100.0); Monocytes # (A) 0.8 k/uL (0-1.0); Monocytes % (A) 6 %; Neutrophils # (A) 10.6 k/uL (1.3-7.7); Neutrophils % (A) 87 %; RBC 3.33 m/uL (3.80-5.40); RDW 12.9 % (11.5-15.5); WBC 12.2 k/uL (3.8-10.6); WBC (Perox) 12.71
[2016-07-27 08:17] LABS: ALT 72 U/L (9-52); AST 57 U/L (14-36); Alkaline Phosphatase 88 U/L (38-126); Amylase <30 U/L (30-110); Anion Gap 5 mmol/L; Blood Urea Nitrogen 26 mg/dL (7-17); Calcium 7.9 mg/dL (8.4-10.2); Carbon Dioxide 28 mmol/L (22-30); Chloride 102 mmol/L (98-107); Glucose 124 mg/dL (74-99); Non-African American GFR(MDRD) 45 (>60 ml/min/1.73 sqM); Potassium 3.1 mmol/L (3.5-5.1); Sodium 135 mmol/L (137-145); Total Bilirubin 0.6 mg/dL (0.2-1.3); Total Protein 4.9 g/dL (6.3-8.2)
[2016-07-27] MEDS: DEXTROSE 5%-0.45% NACL 1,000 ML IV SCH ×4 (08:19→21:54)
[2016-07-27] MEDS: POTASSIUM CHLORIDE 20 MEQ, LIDOCAINE 2% INJ 20 MG in SODIUM CHLORIDE 0.9% 100 ML IVPB SCH ×3 (10:57→19:14)
--- NOTE | 2016-07-27 11:22 | P.GSCN ---
History of Present Illness Consult date: 07/27/16 Reason for Consult: Ascending aortic aneurysm History of present illness: The patient is a 66-year-old female with a history of hypertension presented to the hospital with abdominal pain. Workup revealed cholecystitis and she is scheduled to undergo laparoscopic cholecystectomy later today by general surgery. A computed tomography scan of the chest was performed as part of her workup with an incidental finding of ascending aortic aneurysm measuring approximately 4.3 cm. Patient denies chest pain or back pain. I was asked to evaluate her for treatment recommendations. Review of Systems All systems: negative Past Medical History Past Medical History: Hypertension, Thyroid Disorder Additional Past Medical History / Comment(s): Pt recently admitted to [facility] on with cholecystitis/cholelithiasis. Other HX: IBS, murmer, seasonal asthma, back pain, rectal polyp History of Any Multi-Drug Resistant Organisms: None Reported Past Surgical History: Tonsillectomy Additional Past Surgical History / Comment(s): Partial thyroidectomy r/t benign tumor, colonoscopy. Past Anesthesia/Blood Transfusion Reactions: No Reported Reaction Past Psychological History: No Psychological Hx Reported Additional Psychological History / Comment(s): Pt resides with her . She is normally independent. Smoking Status: Never smoker Past Alcohol Use History: Rare Past Drug Use History: None Reported - Past Family History Mother Family Medical History: AFIB, Diabetes Mellitus Father Family Medical History: CVA/TIA Additional Family Medical History / Comment(s): Father at the age of 76yrs from a probable CVA. Medications and Allergies Home Medications Medication Instructions Recorded Confirmed Type Aspirin EC [Ecotrin Low Dose] 81 mg PO DAILY 07/24/16 07/26/16 History Chlorthalidone 25 mg PO DAILY 07/24/16 07/26/16 History Allergies Allergy/AdvReac Type Severity Reaction Status Date / Time No Known Allergies Allergy Verified 07/26/16 10:56 Surgical - Exam Vital Signs Pulse Ox 93 L 07/26/16 11:11 - General well developed, well nourished, no distress - Eyes normal ocular movement - Respiratory normal respiratory effort - Cardiovascular Rhythm: regular - Abdomen Abdomen: soft - Integumentary no rash - Psychiatric oriented to time, oriented to person, oriented to place Results - Labs 07/27/16 07:31 07/27/16 07:31 Abnormal Lab Results - Last 24 Hours (Table) 07/26/16 07/26/16 07/26/16 Range/Units 15:07 15:07 16:51 WBC 17.0 H (3.8-10.6) k/uL RBC 3.75 L (3.80-5.40) m/uL Hgb (11.4-16.0) gm/dL Hct 33.5 L (34.0-46.0) % Neutrophils # 15.5 H (1.3-7.7) k/uL Lymphocytes # 0.4 L (1.0-4.8) k/uL Sodium 136 L 136 L (137-145) mmol/L Potassium 2.7 L* 2.7 L* (3.5-5.1) mmol/L Chloride 97 L (98-107) mmol/L Carbon Dioxide 34 H (22-30) mmol/L BUN 23 H 24 H (7-17) mg/dL Creatinine 1.27 H 1.20 H (0.52-1.04) mg/dL Glucose 142 H 139 H (74-99) mg/dL Calcium (8.4-10.2) mg/dL AST 108 H (14-36) U/L ALT 109 H (9-52) U/L Total Protein 5.3 L (6.3-8.2) g/dL Albumin 2.9 L (3.5-5.0) g/dL Amylase (30-110) U/L 07/27/16 07/27/16 07/27/16 Range/Units 01:20 07:31 07:31 WBC 12.2 H (3.8-10.6) k/uL RBC 3.33 L (3.80-5.40) m/uL Hgb 10.5 L (11.4-16.0) gm/dL Hct 30.1 L (34.0-46.0) % Neutrophils # 10.6 H (1.3-7.7) k/uL Lymphocytes # 0.6 L (1.0-4.8) k/uL Sodium 135 L (137-145) mmol/L Potassium 3.2 L 3.1 L (3.5-5.1) mmol/L Chloride (98-107) mmol/L Carbon Dioxide (22-30) mmol/L BUN 26 H (7-17) mg/dL Creatinine 1.20 H (0.52-1.04) mg/dL Glucose 124 H (74-99) mg/dL Calcium 7.9 L (8.4-10.2) mg/dL AST 57 H (14-36) U/L ALT 72 H (9-52) U/L Total Protein 4.9 L (6.3-8.2) g/dL Albumin 2.4 L (3.5-5.0) g/dL Amylase <30 L (30-110) U/L Diabetes panel 07/26/16 07/26/16 07/27/16 Range/Units 15:07 16:51 01:20 Sodium 136 L 136 L (137-145) mmol/L Potassium 2.7 L* 2.7 L* 3.2 L (3.5-5.1) mmol/L Chloride 97 L 99 (98-107) mmol/L Carbon Dioxide 34 H 30 (22-30) mmol/L BUN 23 H 24 H (7-17) mg/dL Creatinine 1.27 H 1.20 H (0.52-1.04) mg/dL Glucose 142 H 139 H (74-99) mg/dL Calcium 8.6 8.6 (8.4-10.2) mg/dL AST 108 H (14-36) U/L ALT 109 H (9-52) U/L Alkaline Phosphatase 107 (38-126) U/L Total Protein 5.3 L (6.3-8.2) g/dL Albumin 2.9 L (3.5-5.0) g/dL 07/27/16 Range/Units 07:31 Sodium 135 L (137-145) mmol/L Potassium 3.1 L (3.5-5.1) mmol/L Chloride 102 (98-107) mmol/L Carbon Dioxide 28 (22-30) mmol/L BUN 26 H (7-17) mg/dL Creatinine 1.20 H (0.52-1.04) mg/dL Glucose 124 H (74-99) mg/dL Calcium 7.9 L (8.4-10.2) mg/dL AST 57 H (14-36) U/L ALT 72 H (9-52) U/L Alkaline Phosphatase 88 (38-126) U/L Total Protein 4.9 L (6.3-8.2) g/dL Albumin 2.4 L (3.5-5.0) g/dL Calcium panel 07/26/16 07/26/16 07/27/16 Range/Units 15:07 16:51 07:31 Calcium 8.6 8.6 7.9 L (8.4-10.2) mg/dL Albumin 2.9 L 2.4 L (3.5-5.0) g/dL Pituitary panel 07/26/16 07/26/16 07/27/16 Range/Units 15:07 16:51 01:20 Sodium 136 L 136 L (137-145) mmol/L Potassium 2.7 L* 2.7 L* 3.2 L (3.5-5.1) mmol/L Chloride 97 L 99 (98-107) mmol/L Carbon Dioxide 34 H 30 (22-30) mmol/L BUN 23 H 24 H (7-17) mg/dL Creatinine 1.27 H 1.20 H (0.52-1.04) mg/dL Glucose 142 H 139 H (74-99) mg/dL Calcium 8.6 8.6 (8.4-10.2) mg/dL 07/27/16 Range/Units 07:31 Sodium 135 L (137-145) mmol/L Potassium 3.1 L (3.5-5.1) mmol/L Chloride 102 (98-107) mmol/L Carbon Dioxide 28 (22-30) mmol/L BUN 26 H (7-17) mg/dL Creatinine 1.20 H (0.52-1.04) mg/dL Glucose 124 H (74-99) mg/dL Calcium 7.9 L (8.4-10.2) mg/dL Adrenal panel 07/26/16 07/26/16 07/27/16 Range/Units 15:07 16:51 01:20 Sodium 136 L 136 L (137-145) mmol/L Potassium 2.7 L* 2.7 L* 3.2 L (3.5-5.1) mmol/L Chloride 97 L 99 (98-107) mmol/L Carbon Dioxide 34 H 30 (22-30) mmol/L BUN 23 H 24 H (7-17) mg/dL Creatinine 1.27 H 1.20 H (0.52-1.04) mg/dL Glucose 142 H 139 H (74-99) mg/dL Calcium 8.6 8.6 (8.4-10.2) mg/dL Total Bilirubin 0.9 (0.2-1.3) mg/dL AST 108 H (14-36) U/L ALT 109 H (9-52) U/L Alkaline Phosphatase 107 (38-126) U/L Total Protein 5.3 L (6.3-8.2) g/dL Albumin 2.9 L (3.5-5.0) g/dL // Range/Units 07:31 Sodium 135 L (137-145) mmol/L Potassium 3.1 L (3.5-5.1) mmol/L Chloride 102 (98-107) mmol/L Carbon Dioxide 28 (22-30) mmol/L BUN 26 H (7-17) mg/dL Creatinine 1.20 H (0.52-1.04) mg/dL Glucose 124 H (74-99) mg/dL Calcium 7.9 L (8.4-10.2) mg/dL Total Bilirubin 0.6 (0.2-1.3) mg/dL AST 57 H (14-36) U/L ALT 72 H (9-52) U/L Alkaline Phosphatase 88 (38-126) U/L Total Protein 4.9 L (6.3-8.2) g/dL Albumin 2.4 L (3.5-5.0) g/dL - Imaging CT scan - chest: report reviewed, image reviewed Assessment and Plan (1) Aneurysm of ascending aorta Status: Acute Plan: The patient's computed tomography scan of chest was personally reviewed. She appears to have an ascending aortic aneurysm measuring over 4.0 cm in diameter. There is no evidence of aortic dissection or pleural effusion. Recent echocardiogram did not reveal any obvious aortic valve pathology. At this point she appears to be asymptomatic with regards to this aneurysm. There is no plan for surgical intervention on my part. I would recommend repeat computed tomography scan of the chest in 1 year's time. In the meantime she'll undergo laparoscopic cholecystectomy per general surgery.
[2016-07-27 13:45] VITALS: BMI 26.3
[2016-07-27] MEDS ORDERED: IV FLUID CONTINUATION 1,000 ML IV ONE ×2 (14:52→14:57)
[2016-07-27] MEDS ORDERED: ONDANSETRON 4 MG/2 ML VIAL IVP ONE (15:14)
[2016-07-27] MEDS ORDERED: DEXAMETHASONE SOD PHOS (MDV) 100 MG/10 ML VIAL IVP ONE (15:15)
[2016-07-27] MEDS ORDERED: MIDAZOLAM 2 MG/2 ML VIAL IVP ONE (15:18)
[2016-07-27] MEDS ORDERED: HEPARIN SODIUM,PORCINE 5,000 UNIT/ML 1 ML VIAL SQ STA (16:04)
[2016-07-27] MEDS ORDERED: BUPIVACAIN-EPI 0.25%-1:200,000 30 ML VIAL SQ ONE ×3 (16:08→16:33)
[2016-07-27] MEDS ORDERED: fentaNYL (PF) 50 MCG/ML 2 ML AMP ONE (16:12)
[2016-07-27] MEDS ORDERED: SUCCINYLCHOLINE CHLORIDE 100 MG/5 ML SYR IV ONE (16:12)
[2016-07-27] MEDS ORDERED: ePHEDrine 50 MG/ML 1 ML AMP ONE (16:12)
[2016-07-27] MEDS ORDERED: MIDAZOLAM 2 MG/2 ML VIAL ONE (16:12)
[2016-07-27] MEDS ORDERED: PROPOFOL 10 MG/ML 20 ML VIAL IV ONE (16:12)
[2016-07-27] MEDS ORDERED: ROCURONIUM BROMIDE 10 MG/ML 10 ML VIAL IV ONE (16:12)
[2016-07-27] MEDS ORDERED: GLYCOPYRROLATE 0.2 MG/ML 2 ML VIAL ONE (16:12)
[2016-07-27] MEDS ORDERED: NEOSTIGMINE 1 MG/ML 10 ML VIAL ONE (16:12)
[2016-07-27] MEDS ORDERED: LIDOCAINE 1% INJ 10MG/ML (20 ML MDV) ONE (16:12)
[2016-07-27] MEDS ORDERED: SODIUM CHLORIDE 0.9% 100 ML with ceFAZolin 2,000 MG IV ONE ×2 (16:29)
[2016-07-27] MEDS ORDERED: HYDROmorphone 1 MG/ML 1 ML SYRINGE IVP ONE (18:26)
--- NOTE | 2016-07-27 18:36 | P.PCN ---
Date of Procedure: 07/27/16 Procedure(s) Performed: PREOPERATIVE DIAGNOSIS: Acute cholecystitis POSTOPERATIVE DIAGNOSIS: Acute gangrenous cholecystitis PROCEDURE: Laparoscopic cholecystectomy SURGEON: Shaun EBL: 20 mL ANESTHESIA: Gen. COMPLICATIONS: None OPERATIVE PROCEDURE: The patient was brought and placed on the operating room table in the supine position. The patient was placed under general anesthesia at that time. The abdomen was prepped and draped in the usual sterile fashion. A small vertical infraumbilical incision was made. The fascia was grasped with the Desi forceps. The fascia was retracted anteriorly. The Veress needle was advanced into the peritoneal cavity. The saline drop test was normal. Insufflation took place up to 15 mmHg. A 5 mm optical trocar was advanced and the peritoneal cavity. The patient had a large inflammatory mass present in the mid epigastric region. A 5 mm trocar was placed in the right upper quadrant. Blunt dissection was used to dissect the omental fat away from this inflammatory process. The gallbladder was visualized as the source of the inflammation. A 12 mm epigastric trocar was placed and an additional right upper quadrant 5 mm trocar. The gallbladder was aspirated after making a small opening in the fundus of the gallbladder using electrocautery. The gallbladder was then retracted cephalad. The patient's anatomy was unusual in that the gallbladder was adherent to the left lobe of the liver rather than the right. This forced us to retract the gallbladder towards the left upper quadrant. Careful dissection at the infundibulum using blunt dissection ensued. There were findings of gangrene involving the gallbladder wall scattered throughout. As we were bluntly dissecting the infundibulum purulent fluid was encountered at the level of the cystic duct. I was able to visualize a distended and edematous cystic duct. This was encircled bluntly. I then divided the cystic duct using a 2-0 Ethibond stitch and a 12 mm clip on the patient's side. The gallbladder was divided on the specimen side following that. Careful dissection of the arterial supply then took place again with primarily blunt dissection. Small vessels were divided using the 12 mm clipper. The gallbladder was removed from the left lobe of the liver bed using a combination of blunt dissection and cautery. Once it was fully removed it was removed from the peritoneal cavity using an Endo Catch bag. The gallbladder fossa was irrigated with saline. There was no evidence of any bleeding or biliary drainage seen. I placed a drain in the gallbladder fossa. The trochars were then removed. The fascia at the 12 millimeter site was closed using a figure-of -eight 0 Vicryl stitch. The skin at all 3 sites was closed using a 4-0 Monocryl stitch. The drain was sutured to the skin using a 3-0 silk stitch. At the end of this procedure the sponge and needle counts were correct. DISPOSITION: Stable to the recovery room
[2016-07-27] MEDS ORDERED: ACETAMINOPHEN IV (For NPO) 1,000 MG in EMPTY BAG 1 BAG IVPB PRN (20:54)
[2016-07-27] MEDS ORDERED: ACETAMINOPHEN IV (For NPO) 1,000 MG in EMPTY BAG 1 BAG IVPB STA (20:57)
[2016-07-27] MEDS: POTASSIUM CHLORIDE ER 20 MEQ TAB.ER PO SCH ×2 (21:54→23:38)
[2016-07-27] MEDS: HYDROmorphone 1 MG/ML 1 ML SYRINGE IVP PRN (23:42)
[2016-07-28] MEDS: metroNIDAZOLE-NS PMX 500 MG in SALINE 1 100ML.BAG IVPB SCH ×5 (01:10→23:03)
[2016-07-28] MEDS: DEXTROSE 5%-0.45% NACL 1,000 ML IV SCH ×5 (04:07→23:03)
[2016-07-28] MEDS: PIPERACILLIN-TAZOBACTAM 3.375 GM in DEXTROSE/WATER 1 50ML.BAG IVPB SCH ×2 (06:09→15:19)
[2016-07-28 08:13] LABS: Basophils % (A) 0 %; CH 30.5; CHCM 33.1; Eosinophils % (A) 0 %; HCT 29.9 % (34.0-46.0); HDW 2.74; HGB 10.4 gm/dL (11.4-16.0); Luc % (Auto) 1; Lymphocytes # (A) 0.6 k/uL (1.0-4.8); Lymphocytes % (A) 6 %; MCH 32.1 pg (25.0-35.0); MCHC 34.7 g/dL (31.0-37.0); MCV 92.5 fL (80.0-100.0); Mean Platelet Volume 7.3; Monocytes # (A) 0.5 k/uL (0-1.0); Monocytes % (A) 5 %; Neutrophils # (A) 7.8 k/uL (1.3-7.7); Neutrophils % (A) 88 %; RBC 3.24 m/uL (3.80-5.40); RDW 13.1 % (11.5-15.5); WBC (Perox) 9.66
[2016-07-28 08:21] LABS: ALT 58 U/L (9-52); AST 45 U/L (14-36); Alkaline Phosphatase 107 U/L (38-126); Anion Gap 6 mmol/L; Blood Urea Nitrogen 14 mg/dL (7-17); Calcium 7.8 mg/dL (8.4-10.2); Carbon Dioxide 27 mmol/L (22-30); Chloride 105 mmol/L (98-107); Glucose 158 mg/dL (74-99); Non-African American GFR(MDRD) 59 (>60 ml/min/1.73 sqM); Potassium 3.5 mmol/L (3.5-5.1); Sodium 138 mmol/L (137-145); Total Bilirubin 0.4 mg/dL (0.2-1.3); Total Protein 4.7 g/dL (6.3-8.2)
[2016-07-28] MEDS ORDERED: Potassium Replacement Protocol 1 EACH MISC MISCELLANE PRN (08:58)
[2016-07-28] MEDS: HYDROmorphone 1 MG/ML 1 ML SYRINGE IVP PRN (09:54)
--- NOTE | 2016-07-28 10:01 | P.PN ---
Subjective Principal diagnosis: Acute cholecystitis Patient complaining of upper abdominal discomfort. She says it is better than it was last night although still fairly bad. White blood cell count was normal. Liver enzymes are decreasing. YULISSA drain is serosanguineous. She is afebrile. Objective - Vital Signs Vital signs: Vital Signs Temp 98.4 F 07/28/16 07:00 Pulse 92 07/28/16 07:00 Resp 16 07/28/16 07:00 BP 106/69 07/28/16 07:00 Pulse Ox 94 L 07/28/16 07:00 Intake & Output 07/27/16 07/28/16 07/28/16 18:59 06:59 18:59 Intake Total 1775 1850 Output Total 20 470 Balance 1755 1380 Weight 74 kg Intake: IV 1325 1850 Dextrose 5%-0.45% NaCl 1, 1600 000 ml @ 200 mls/hr IV . Q5H [facility] Rx#:[id number] Piperacillin-Tazobactam 3 50 .375 gm In Dextrose/Water 1 50ml.bag @ 12.5 mls/hr IVPB Q8HR [facility] Rx#: [id number] metroNIDAZOLE-NS PMX 500 200 mg In Saline 1 100ml.bag @ 100 mls/hr IVPB Q6HR [facility] Rx#:[id number] Intake, IV Titration 450 Amount Piperacillin-Tazobactam 3 50 .375 gm In Dextrose/Water 1 50ml.bag @ 12.5 mls/hr IVPB Q8HR [facility] Rx#: [id number] Potassium Chloride 20 meq 200 Lidocaine 2% Inj 20 mg In Sodium Chloride 0.9% 100 ml @ 55.5 mls/hr IVPB Q2HR [facility] Rx#:[id number] metroNIDAZOLE-NS PMX 500 200 mg In Saline 1 100ml.bag @ 100 mls/hr IVPB Q6HR [facility] Rx#:[id number] Output: Drainage 120 Abdomen 120 Urine 350 Estimated Blood Loss 20 Other: Voiding Method Toilet # Voids 1 1 - Exam Abdomen: Soft, mild upper abdominal tenderness dressings intact - Labs CBC & Chem 7: 07/28/16 07:36 07/28/16 07:36 Labs: Abnormal Lab Results - Last 24 Hours (Table) 07/27/16 07/28/16 07/28/16 Range/Units 20:52 07:36 07:36 RBC 3.24 L (3.80-5.40) m/uL Hgb 10.4 L (11.4-16.0) gm/dL Hct 29.9 L (34.0-46.0) % Neutrophils # 7.8 H (1.3-7.7) k/uL Lymphocytes # 0.6 L (1.0-4.8) k/uL Potassium 3.2 L (3.5-5.1) mmol/L Glucose 158 H (74-99) mg/dL Calcium 7.8 L (8.4-10.2) mg/dL AST 45 H (14-36) U/L ALT 58 H (9-52) U/L Total Protein 4.7 L (6.3-8.2) g/dL Albumin 2.3 L (3.5-5.0) g/dL Microbiology - Last 24 Hours (Table) 07/26/16 17:13 Blood Culture - Preliminary Blood No Growth after 24 hours 07/26/16 16:45 Blood Culture - Preliminary Blood No Growth after 24 hours Assessment and Plan (1) Cholecystitis Narrative/Plan: Slowly advance diet. Continue IV antibiotics. Possible discharge later today or tomorrow based on the patient's abdominal discomfort. Status: Acute
[2016-07-28] MEDS: POTASSIUM CHLORIDE 10 MEQ in WATER FOR INJECTION 1 100ML.BAG IVPB SCH ×2 (11:25→12:59)
[2016-07-28] MEDS ORDERED: POTASSIUM CHLORIDE 10 MEQ, LIDOCAINE 2% INJ 10 MG in SODIUM CHLORIDE 0.9% 100 ML IVPB ONE (13:00)
[2016-07-28] MEDS: HYDROcodone/APAP 5-325MG 1 EACH TAB PO PRN ×2 (17:20→21:43)
[2016-07-29] MEDS: PIPERACILLIN-TAZOBACTAM 3.375 GM in DEXTROSE/WATER 1 50ML.BAG IVPB SCH ×3 (00:45→16:44)
[2016-07-29] MEDS: ONDANSETRON 4 MG/2 ML VIAL IVP PRN ×3 (04:07→20:00)
[2016-07-29] MEDS: metroNIDAZOLE-NS PMX 500 MG in SALINE 1 100ML.BAG IVPB SCH ×3 (06:05→16:44)
[2016-07-29] MEDS: DEXTROSE 5%-0.45% NACL 1,000 ML IV SCH (06:11)
[2016-07-29] MEDS: POTASSIUM CHLORIDE 10 MEQ, LIDOCAINE 2% INJ 10 MG in SODIUM CHLORIDE 0.9% 100 ML IVPB SCH ×4 (11:48→19:14)
--- NOTE | 2016-07-29 14:07 | P.PN ---
Subjective Principal diagnosis: Acute cholecystitis Patient doing better today. She was nauseous last night but that is improving. Her pain is much improved. YULISSA drain remained serosanguineous. She is afebrile. Blood cultures from yesterday were shown to be positive for gram- negative bacilli. Objective - Vital Signs Vital signs: Vital Signs Temp 97.4 F L 07/29/16 07:00 Pulse 73 07/29/16 07:00 Resp 16 07/29/16 07:00 BP 131/83 07/29/16 07:00 Pulse Ox 94 L 07/29/16 07:00 Intake & Output 07/28/16 07/29/16 07/29/16 18:59 06:59 18:59 Intake Total 240 1950 Output Total 30 30 Balance 210 1920 Intake: IV 1750 Dextrose 5%-0.45% NaCl 1, 1600 000 ml @ 200 mls/hr IV . Q5H [facility] Rx#:[id number] Piperacillin-Tazobactam 3 50 .375 gm In Dextrose/Water 1 50ml.bag @ 12.5 mls/hr IVPB Q8HR [facility] Rx#: [id number] metroNIDAZOLE-NS PMX 500 100 mg In Saline 1 100ml.bag @ 100 mls/hr IVPB Q6HR [facility] Rx#:[id number] Oral 240 200 Output: Drainage 30 30 Abdomen 30 30 Other: Voiding Method Toilet Toilet Toilet # Voids 2 1 - Exam Abdomen: Soft, mild incisional tenderness, nondistended - Labs CBC & Chem 7: 07/28/16 07:36 07/29/16 07:14 Labs: Abnormal Lab Results - Last 24 Hours (Table) 07/29/16 Range/Units 07:14 Potassium 3.2 L (3.5-5.1) mmol/L Microbiology - Last 24 Hours (Table) 07/26/16 17:13 Blood Culture Gram Stain - Preliminary Blood Blood Culture - Preliminary Gram Neg Bacilli 07/26/16 16:45 Blood Culture - Preliminary Blood No Growth after 48 hours 07/26/16 17:13 Blood Culture - Preliminary Blood Assessment and Plan (1) Cholecystitis Narrative/Plan: Continue antibiotics. Continue diet as tolerated. Probable discharge later today if her nausea resolves. We'll discharge with the drain in place and plan follow-up 1 week in the office. Status: Acute
[2016-07-29] MEDS: PROCHLORPERAZINE 10 MG TAB PO PRN ×2 (15:08→22:18)
[2016-07-29 22:06] VITALS: PULSE 74
[2016-07-29] MEDS ORDERED: POTASSIUM CHLORIDE ER 20 MEQ TAB.ER PO SCH (23:00)
[2016-07-29 23:07] VITALS: RESP 18; TEMP 97.9
[2016-07-30] MEDS ORDERED: POTASSIUM CHLORIDE 10 MEQ, LIDOCAINE 2% INJ 10 MG in SODIUM CHLORIDE 0.9% 100 ML IVPB SCH ×3
[2016-07-30] MEDS: metroNIDAZOLE-NS PMX 500 MG in SALINE 1 100ML.BAG IVPB SCH ×3 (00:18→11:57)
[2016-07-30] MEDS: PANTOPRAZOLE 40 MG/10 ML VIAL IVP SCH ×2 (00:19→07:31)
[2016-07-30] MEDS: PIPERACILLIN-TAZOBACTAM 3.375 GM in DEXTROSE/WATER 1 50ML.BAG IVPB SCH ×2 (01:25→07:39)
[2016-07-30 05:52] LABS: ALT 73 U/L (9-52); AST 63 U/L (14-36); Alkaline Phosphatase 294 U/L (38-126); Anion Gap 1 mmol/L; Blood Urea Nitrogen 11 mg/dL (7-17); Calcium 8.1 mg/dL (8.4-10.2); Carbon Dioxide 30 mmol/L (22-30); Chloride 105 mmol/L (98-107); Glucose 81 mg/dL (74-99); Non-African American GFR(MDRD) 56 (>60 ml/min/1.73 sqM); Potassium 3.7 mmol/L (3.5-5.1); Sodium 136 mmol/L (137-145); Total Bilirubin 0.5 mg/dL (0.2-1.3); Total Protein 4.3 g/dL (6.3-8.2)
[2016-07-30] MEDS ORDERED: POTASSIUM CHLORIDE ER 20 MEQ TAB.ER PO SCH (07:00)
[2016-07-30 07:55] VITALS: BP 130/87
--- NOTE | 2016-07-30 13:39 | P.PN ---
Subjective Principal diagnosis: Acute cholecystitis Patient doing well today. Nausea and vomiting have resolved. Pain is about 1- 2 out of 10. YULISSA drain serous. Tolerating a regular diet. Objective - Vital Signs Vital signs: Vital Signs Temp 97.9 F 07/30/16 07:00 Pulse 74 07/30/16 07:53 Resp 18 07/30/16 07:53 BP 130/87 07/30/16 07:00 Pulse Ox 93 L 07/30/16 07:00 Intake & Output 07/29/16 07/30/16 07/30/16 18:59 06:59 18:59 Intake Total 550 1180 240 Output Total 50 15 5 Balance 500 1165 235 Weight 74 kg Intake: IV 350 Dextrose 5%-0.45% NaCl 1, 200 000 ml @ 200 mls/hr IV . Q5H [facility] Rx#:[id number] Piperacillin-Tazobactam 3 50 .375 gm In Dextrose/Water 1 50ml.bag @ 12.5 mls/hr IVPB Q8HR [facility] Rx#: [id number] metroNIDAZOLE-NS PMX 500 100 mg In Saline 1 100ml.bag @ 100 mls/hr IVPB Q6HR [facility] Rx#:[id number] Intake, IV Titration 200 Amount Potassium Chloride 10 meq 200 Lidocaine 2% Inj 10 mg In Sodium Chloride 0.9% 100 ml @ 100 mls/hr IVPB Q1HR [facility] Rx#:[id number] Oral 1180 240 Output: Drainage 50 15 5 Abdomen 50 15 5 Other: Voiding Method Toilet Toilet Toilet # Voids 2 3 # Bowel Movements 1 2 - Exam Abdomen: Soft, nondistended, incision clean and dry, minimal tenderness - Labs CBC & Chem 7: 07/28/16 07:36 07/30/16 11:06 Labs: Abnormal Lab Results - Last 24 Hours (Table) 07/29/16 07/30/16 Range/Units 15:55 05:21 Sodium 136 L (137-145) mmol/L Potassium 3.4 L (3.5-5.1) mmol/L Calcium 8.1 L (8.4-10.2) mg/dL AST 63 H (14-36) U/L ALT 73 H (9-52) U/L Alkaline Phosphatase 294 H (38-126) U/L Total Protein 4.3 L (6.3-8.2) g/dL Albumin 2.2 L (3.5-5.0) g/dL Microbiology - Last 24 Hours (Table) 07/26/16 16:45 Blood Culture - Preliminary Blood No Growth after 72 hours Assessment and Plan (1) Cholecystitis Narrative/Plan: Remove YULISSA drain today. Home on antibiotics [place] and antiacids. Follow-up in the office 1 week. Status: Acute
--- NOTE | 2016-07-30 20:40 | PN ---
DATE OF SERVICE: 07/27/2016 CHIEF COMPLAINT: Abdominal pain and hypertension. HISTORY OF PRESENT ILLNESS: This lady is doing fairly well and was found to have acute cholecystitis. She is going to surgery. She is in quite a bit of discomfort. She is not vomiting. PHYSICAL EXAM: Her chest is clear. The cardiac exam is normal. Abdomen is extremely tender in the right upper quadrant with guarding. IMPRESSION: 1. Acute cholecystitis. 2. Hypertension. 3. Aortic stenosis with ( ) dilatation. PLAN: Await cholecystectomy.
--- NOTE | 2016-07-30 20:45 | PN ---
DATE OF SERVICE: 07/28/2016 CHIEF COMPLAINT: Cholecystitis and cholelithiasis as well as hypertension. HISTORY OF PRESENT ILLNESS: This lady is doing fairly well, but her potassium is slightly low. She is going to the operating room sometime when determined by Surgery. PHYSICAL EXAM: Chest is clear. The cardiac exam is normal. She is afebrile. IMPRESSION: 1. Acute cholecystitis. 2. Hypokalemia. 3. Hypertension. PLAN: Correct hypokalemia and await OR time.
--- NOTE | 2016-07-30 20:58 | PN ---
DATE OF SERVICE: 07/29/2016 CHIEF COMPLAINT: Cholecystitis. HISTORY OF PRESENT ILLNESS: This lady is doing reasonably well, but she is having quite a bit of discomfort. She has had no fever, chills, vomiting, etc. PHYSICAL EXAMINATION: Bowel sounds are absent. Chest is clear. Cardiac exam is normal. IMPRESSION: 1. Status post cholecystectomy for gangrenous gallbladder. 2. Hypertension. 3. Aortic stenosis. PLAN: Slowly advance diet and activity, and she probably will not go home today.
--- NOTE | 2016-07-30 21:08 | DS ---
DATE OF ADMISSION: 07/26/2016 DATE OF DISCHARGE: 07/30/2016 CHIEF COMPLAINT: Abdominal pain. HISTORY OF PRESENT ILLNESS AND PHYSICAL EXAMINATION: The details of this lady's history and physical can be found in the initial workup. COURSE IN THE HOSPITAL: After admission she was placed on bed rest, started on intravenous fluids and analgesics and was seen by Surgery. She was eventually taken to the operating room, where she had a cholecystectomy. She had significant discomfort for a day or two, but improved enough that she was able to advance her diet and activity and go home on July 30, and she will be seen in the office in several days. FINAL DIAGNOSES: 1. Acute cholecystitis. 2. Hypertension. 3. Aortic stenosis. OPERATIONS: Cholecystectomy. CONSULTATIONS: 1. Surgery. 2. Cardiology. She is improved.
== END 2016-07-30 14:40 | disposition home or self-care (01) | DRG 419 ==
LOC: 5MS5E 10:38
PROVIDERS: ADMIT Family Medicine; ATTEND Family Medicine
PROC: 0FT44ZZ Resection of Gallbladder, Percutaneous Endoscopic Approach (ICD-10-PCS; principal; 2016-07-27 10:00)
DX: K81.0 Acute cholecystitis (principal); I71.2 Thoracic aortic aneurysm, without rupture; I10 Essential (primary) hypertension; I35.0 Nonrheumatic aortic (valve) stenosis; K82.8 Other specified diseases of gallbladder; E89.0 Postprocedural hypothyroidism; J45.909 Unspecified asthma, uncomplicated; E87.6 Hypokalemia; K58.9 Irritable bowel syndrome, unspecified; M54.9 Dorsalgia, unspecified; Z79.82 Long term (current) use of aspirin; Z79.899 Other long term (current) drug therapy; Z71.3 Dietary counseling and surveillance; Z82.49 Family history of ischemic heart disease and other diseases of the circulatory system; Z82.3 Family history of stroke; Z83.3 Family history of diabetes mellitus; Z87.19 Personal history of other diseases of the digestive system
CPT/HCPCS: 71020; 80048; 80053; 82150; 83605; 83690; 83735; 84132; 85025; 87040; 87077; 87186; 88304; 94760

== ENCOUNTER 2016-12-24 07:56 | Day surgery (SDC) | payer MEDICAID ==
[2016-12-23 09:43] VITALS: BMI 27.8
[~2016-12-24 07:56] MED LIST: LACTATED RINGERS 1,000 ML IV SCH; LIDOCAINE 1% 20 ML VIAL (10MG/ML) FOR IV START INTRADERMA PRN
[2016-12-24 08:15] VITALS: TEMP 98
[2016-12-24] MEDS ORDERED: LACTATED RINGERS 1,000 ML IV ONE (08:16)
[2016-12-24] MEDS ORDERED: LIDOCAINE 1% INJ 10MG/ML (20 ML MDV) ONE (09:10)
[2016-12-24] MEDS ORDERED: PROPOFOL 10 MG/ML 20 ML VIAL IV ONE (09:10)
--- NOTE | 2016-12-24 09:14 | P.GSHP ---
History of Present Illness H&P Date: 12/24/16 Chief Complaint: Colon cancer screening Patient is here today for colonoscopy. Last colonoscopy 6 years ago. She has a history of colon polyps. Otherwise no change in bowel habits. Past Medical History Past Medical History: GERD/Reflux, Hypertension, Renal Disease, Thyroid Disorder Additional Past Medical History / Comment(s): Murmur. HX COLON polyp. EARLY KIDNEY DX. History of Any Multi-Drug Resistant Organisms: None Reported Past Surgical History: Cholecystectomy, Tonsillectomy Additional Past Surgical History / Comment(s): Partial thyroidectomy r/t benign tumor. Colonoscopy. Past Anesthesia/Blood Transfusion Reactions: No Reported Reaction Smoking Status: Never smoker - Past Family History Mother Family Medical History: AFIB, Diabetes Mellitus Father Family Medical History: CVA/TIA Additional Family Medical History / Comment(s): Father at the age of 76yrs from a probable CVA. Medications and Allergies Home Medications Medication Instructions Recorded Confirmed Type Losartan [Cozaar] 50 mg PO DAILY 12/23/16 12/23/16 History Pantoprazole [Protonix] 40 mg PO Q48H 12/23/16 12/23/16 History Allergies Allergy/AdvReac Type Severity Reaction Status Date / Time No Known Allergies Allergy Verified 12/23/16 09:28 Surgical - Exam Vital Signs Temp Pulse Resp BP Pulse Ox 98.0 F 78 18 138/86 98 12/24/16 08:14 12/24/16 08:14 12/24/16 08:14 12/24/16 08:14 12/24/16 08:14 Physical exam: General: Well-developed, well-nourished HEENT: Normocephalic, sclerae nonicteric Abdomen: Nontender, nondistended Extremities: No edema Neuro: Alert and oriented Assessment and Plan (1) Colon cancer screening Narrative/Plan: Will proceed with colonoscopy at this time Status: Acute
--- NOTE | 2016-12-24 09:29 | P.PCN ---
Date of Procedure: 12/24/16 Procedure(s) Performed: PREOPERATIVE DIAGNOSIS: Colon cancer screening, history of colon polyps POSTOPERATIVE DIAGNOSIS: Diverticulosis PROCEDURE: Colonoscopy ANESTHESIA: MAC SURGEON: Willy Dunn M.D. SPECIMENS: None ENDOSCOPIC PROCEDURE: The patient was placed on the endoscopy table in the left decubitus position. The Olympus colonoscope was inserted into the anus and passed under direct visualization to the base of the cecum. The appendiceal orifice was visualized. From that point the scope was slowly withdrawn inspecting all surfaces carefully. There were no neoplastic inflammatory or polypoid lesions throughout the cecum, ascending, transverse, descending, sigmoid and rectum. There was mild diverticulosis noted in the left colon. Digital rectal examination was normal. The patient was taken to the recovery room in stable condition per anesthesia guidelines. RECOMMENDATIONS: Increase fiber. Follow-up colonoscopy 5 years
[2016-12-24 09:54] VITALS: BP 120/76; PULSE 60; RESP 18
== END 2016-12-24 10:08 | disposition home or self-care (01) ==
LOC: ORWHC2ENDO 07:56
PROVIDERS: ATTEND Surgery
DX: Z12.11 Encounter for screening for malignant neoplasm of colon (principal); K57.30 Diverticulosis of large intestine without perforation or abscess without bleeding; Z86.010 Personal history of colon polyps; K21.9 Gastro-esophageal reflux disease without esophagitis; I10 Essential (primary) hypertension; E07.9 Disorder of thyroid, unspecified; Z79.899 Other long term (current) drug therapy
CPT/HCPCS: J2001; J2704; G0105

== ENCOUNTER → 2017-09-15 | Outpatient (CLI) | payer MEDICAID ==
--- NOTE | 2017-09-16 11:57 | ECHOF ---
Referral Reason:I11.9 Hypertensive heart disease without heart olivia MEASUREMENTS -------- HEIGHT: 165.1 cm WEIGHT: 83.9 kg BP: IVSd: 1.5 cm (0.6 - 1.1) LVIDd: 3.6 cm (3.9 - 5.3) LVPWd: 1.2 cm (0.6 - 1.1) IVSs: 1.7 cm LVIDs: 2.5 cm LVPWs: 1.3 cm LA Diam: 3.2 cm (2.7 - 3.8) LAESV Index (A-L): 25.25 ml/m Ao Diam: 3.5 cm (2.0 - 3.7) AV Cusp: 1.9 cm (1.5 - 2.6) LA Diam: 3.7 cm (2.7 - 3.8) MV EXCURSION: 13.536 mm (> 18.000) MV EF SLOPE: 58 mm/s (70 - 150) EPSS: 0.3 cm MV E Janes: 0.74 m/s MV DecT: 214 ms MV A Janes: 0.74 m/s MV E/A Ratio: 0.99 RAP: 5.00 mmHg RVSP: 29.49 mmHg FINDINGS -------- Sinus rhythm. This was a technically adequate study. The left ventricular size is normal. There is moderate concentric left ventricular hypertrophy. O verall left ventricular systolic function is normal with, an EF between 55 - 60 %. The right ventricle is normal in size. The left atrial size is normal. Normal LA size by volume 22+/-6 ml/m2. The right atrial size is normal. Mild mitral annular calcification present. Mild mitral regurgitation is present. Mild tricuspid regurgitation present. There is no evidence of pulmonary hypertension. The right v entricular systolic pressure, as measured by Doppler, is 29.49mmHg. Trace/mild (physiologic) pulmonic regurgitation. The aortic root size is normal. Ascending Aortic is dilated and measures 4.0cm. There is no pericardial effusion. CONCLUSIONS -------- 1. This was a technically adequate study. 2. The left ventricular size is normal. 3. There is moderate concentric left ventricular hypertrophy. 4. Overall left ventricular systolic function is normal with, an EF between 55 - 60 %. 5. The right ventricle is normal in size. 6. The left atrial size is normal. 7. The right atrial size is normal. 8. Mild mitral annular calcification present. 9. Mild mitral regurgitation is present. 10. Mild tricuspid regurgitation present. 11. There is no evidence of pulmonary hypertension. 12. The right ventricular systolic pressure, as measured by Doppler, is 29.49mmHg. 13. Trace/mild (physiologic) pulmonic regurgitation. 14. The aortic root size is normal. 15. Ascending Aortic is dilated and measures 4.0cm. 16. There is no pericardial effusion. RESTAURANT LINE SERVER: Shirley Campo RDCS
== END ==
LOC: RADECHMAIN 15:49
PROVIDERS: ATTEND Family Medicine
DX: I08.1 Rheumatic disorders of both mitral and tricuspid valves (principal); I11.9 Hypertensive heart disease without heart failure
CPT/HCPCS: 93306

== ENCOUNTER → 2018-05-15 | Outpatient (CLI) | payer MEDICAID ==
--- NOTE | 2018-05-15 14:37 | US ---
EXAMINATION TYPE: US kidneys/renal and bladder DATE OF EXAM: 05/15/2018 COMPARISON: US 2017 CLINICAL HISTORY: N18.3 Chronic Kidney disease. EXAM MEASUREMENTS: Right Kidney: 10.4 x 5.5 x 3.9 cm Left Kidney: 10.4 x 5.4 x 5.5 cm Post Void Residual Volume: 6.4 mL Right Kidney: Somewhat decreased renal cortex. No hydronephrosis or masses seen Left Kidney: Somewhat decreased renal cortex. No hydronephrosis or masses seen Bladder: wnl Bilateral Jets seen: Yes Normal Post Void Residual: Yes IMPRESSION: 1. No discrete acute abnormality. Early cortical thinning is not excluded. Correlate with renal funct ion.
== END | disposition home or self-care (01) ==
LOC: RADUSWWP 12:09
PROVIDERS: ATTEND Family Medicine
DX: N18.3 Chronic kidney disease, stage 3 (moderate) (principal)
CPT/HCPCS: 76770

== ENCOUNTER → 2018-08-30 | Outpatient (CLI) | payer MEDICAID ==
[2018-08-30 16:56] LABS: HCT 38.5 % (34.0-46.0); HGB 12.5 gm/dL (11.4-16.0); MCH 29.2 pg (25.0-35.0); MCHC 32.5 g/dL (31.0-37.0); MCV 89.8 fL (80.0-100.0); Mean Platelet Volume 6.8; Platelet Count 239 k/uL (150-450); RBC 4.29 m/uL (3.80-5.40); RDW 13.2 % (11.5-15.5); WBC 6.3 k/uL (3.8-10.6)
[2018-08-30 17:19] LABS: Appearance,Urine Clear (Clear); Bilirubin,Urine Negative (Negative); Blood,Urine Trace (Negative); Color,Urine Yellow; Glucose,Urine (UA) Negative (Negative); Ketones,Urine Negative (Negative); Leukocyte Esterase,Urine Moderate (Negative); Nitrite,Urine Negative (Negative); PH, Urine 5.5 (5.0-8.0); Protein,Urine Negative (Negative); RBC,Urine 2 /hpf (0-5); Squamous Epithelial Cell,Urine <1 /hpf (0-4); Urobilinogen,Urine <2.0 mg/dL (<2.0); WBC,Urine 7 /hpf (0-5)
[2018-08-31 00:11] LABS: Iron Saturation 21.56 (12.00-45.00)
[2018-08-31 00:37] LABS: Parathyroid Hormone Intact 67.8 pg/mL (14.0-72.0)
[2018-08-31 03:12] LABS: Albumin 4.1 g/dL (3.80-4.90); Albumin/Globulin Ratio 2.05 (1.60-3.17); Anion Gap 7.5 mmol/L (4.00-12.00); Calcium 9.4 mg/dL (8.7-10.3); Carbon Dioxide 26.5 mmol/L (21.6-31.8); Magnesium 1.8 mg/dL (1.5-2.4); Phosphorus 3.8 mg/dL (2.4-5.1); Potassium 4.3 mmol/L (3.5-5.5); Total Bilirubin 0.3 mg/dL (0.3-1.2); Total Protein 6.1 g/dL (6.2-8.2); Uric Acid 5.9 mg/dL (2.9-7.7)
== END | disposition home or self-care (01) ==
LOC: LABWHC1 16:23
PROVIDERS: ATTEND Internal Medicine
DX: N18.3 Chronic kidney disease, stage 3 (moderate) (principal)
CPT/HCPCS: 36415; 80053; 81001; 82306; 82728; 83540; 83550; 83735; 83970; 84100; 84550; 85027

== ENCOUNTER → 2019-01-22 | Outpatient (CLI) | payer MEDICAID ==
--- NOTE | 2019-01-22 19:31 | ECHOF ---
Referral Reason:I71.2 AAA MEASUREMENTS -------- HEIGHT: 165.1 cm WEIGHT: 84.4 kg BP: RVIDd: 2.9 cm (< 3.3) IVSd: 1.3 cm (0.6 - 1.1) LVIDd: 4.2 cm (3.9 - 5.3) LVPWd: 1.0 cm (0.6 - 1.1) IVSs: 1.8 cm LVIDs: 2.3 cm LVPWs: 1.7 cm LA Diam: 3.2 cm (2.7 - 3.8) LAESV Index (A-L): 26.76 ml/m Ao Diam: 3.5 cm (2.0 - 3.7) LA Diam: 3.4 cm (2.7 - 3.8) MV EXCURSION: 14.577 mm (> 18.000) MV EF SLOPE: 83 mm/s (70 - 150) EPSS: 0.2 cm MV E Janes: 0.52 m/s MV DecT: 272 ms MV A Janes: 0.68 m/s MV E/A Ratio: 0.77 FINDINGS -------- Sinus rhythm. This was a technically good study. The left ventricular size is normal. There is mild concentric left ventricular hypertrophy. Overa ll left ventricular systolic function is normal with, an EF between 55 - 60 %. The right ventricle is normal in size. The left atrial size is normal. The right atrial size is normal. There is mild aortic valve sclerosis. There is no evidence of aortic regurgitation. Mild mitral regurgitation is present. No regurgitation noted Right ventricular systolic pressure is normal at < 35 mmHg. There is no ev idence of pulmonary hypertension. The pulmonic valve is normal. Ascending Aortic Root is dilated and measures 4.0cm. There is no pericardial effusion. CONCLUSIONS -------- 1. Sinus rhythm. 2. This was a technically good study. 3. The left ventricular size is normal. 4. There is mild concentric left ventricular hypertrophy. 5. Overall left ventricular systolic function is normal with, an EF between 55 - 60 %. 6. The right ventricle is normal in size. 7. The left atrial size is normal. 8. The right atrial size is normal. 9. There is mild aortic valve sclerosis. 10. Mild mitral regurgitation is present. 11. No regurgitation noted 12. Right ventricular systolic pressure is normal at < 35 mmHg. 13. There is no evidence of pulmonary hypertension. 14. The pulmonic valve is normal. 15. Ascending Aortic Root is dilated and measures 4.0cm. 16. There is no pericardial effusion. COMB WINDER: Shirley Campo RDCS
== END | disposition home or self-care (01) ==
LOC: RADECHMAIN 14:47
PROVIDERS: ATTEND Family Medicine
DX: I08.0 Rheumatic disorders of both mitral and aortic valves (principal)
CPT/HCPCS: 93306

== ENCOUNTER → 2022-07-27 | Outpatient (CLI) | payer MEDICARE, OTHER ==
[2022-07-27 20:13] LABS: Basophils # (A) 0.07 X 10*3/uL (0.00-0.10); Basophils % (A) 1.2 %; Eosinophils # (A) 0.12 X 10*3/uL (0.04-0.35); Eosinophils % (A) 2.1 %; HCT 40.2 % (37.2-46.3); HGB 13.2 g/dL (12.0-15.0); Immature Grans, Automated 0.7 %; Lymphocytes # (A) 2.39 X 10*3/uL (0.90-5.00); Lymphocytes % (A) 42.2 %; MCH 30.2 pg (27.0-32.0); MCHC 32.8 g/dL (32.0-37.0); Mean Platelet Volume 10.8 fL (9.5-12.2); Monocytes # (A) 0.57 X 10*3/uL (0.20-1.00); Monocytes % (A) 10.1 %; NRBC Per 100 WBC 0 /100 WBCS (0.0-0.0); Neutrophils # (A) 2.47 X 10*3/uL (1.80-7.70); Neutrophils % (A) 43.7 %; Platelet Count 234 X 10*3/uL (140-440); RBC 4.37 X 10*6/uL (4.10-5.20); RDW 12.4 % (11.5-14.5); WBC 5.66 X 10*3/uL (4.50-10.00)
[2022-07-27 20:19] LABS: Anion Gap 9.1 mmol/L (10.00-18.00); Carbon Dioxide 26.9 mmol/L (20.0-27.5); Potassium 4.6 mmol/L (3.5-5.5)
== END | disposition home or self-care (01) ==
LOC: LABWHC1 13:41
PROVIDERS: ATTEND Orthopaedic Surgery
DX: Z01.818 Encounter for other preprocedural examination (principal); M75.41 Impingement syndrome of right shoulder; R00.1 Bradycardia, unspecified; R94.31 Abnormal electrocardiogram [ECG] [EKG]
CPT/HCPCS: 36415; 80051; 85025; 93005

== ENCOUNTER 2022-08-04 08:00 | Day surgery (SDC) | payer MEDICARE, OTHER ==
[2022-08-02 15:54] VITALS: BMI 29.6
--- NOTE | 2022-08-03 23:32 | HP ---
HISTORY AND PHYSICAL DATE OF SCHEDULED SURGERY: 08/04/2022. HISTORY OF PRESENT ILLNESS: Enzo Lozano is a 72-year-old patient seen with progressive right shoulder pain. We discussed options for treatment. She elected to proceed with right shoulder arthroscopy. Consent was obtained. PAST MEDICAL HISTORY: Hypertension, gastroesophageal reflux disease. PAST SURGICAL HISTORY: Cholecystectomy. DAILY MEDICATIONS: Atenolol, Protonix. ALLERGIES: None. SOCIAL HISTORY: She denies tobacco use. PHYSICAL EVALUATION OF RIGHT SHOULDER: Flexion is 100 degrees, abduction is 80 degrees. External rotation is 40 degrees with some pain and weakness. She is tender along the anterior lateral acromion and rotator cuff insertion site. Impingement sign is positive at 70 degrees. Drop-arm sign is positive. Distal neurovascular exam is intact. RADIOGRAPHS: Radiographs of the right shoulder revealed a type 2 acromion along with moderate acromioclavicular joint osteoarthritis and cystic changes of the tuberosity. MRI right shoulder revealed a partial rotator cuff tear, impingement, acromioclavicular joint osteoarthritis. IMPRESSION: 1. Right shoulder impingement with rotator cuff tear. 2. Right shoulder acromioclavicular joint osteoarthritis. 3. Hypertension. PLAN: Right shoulder arthroscopy with subacromial decompression, arthroscopic rotator cuff repair, possible David procedure and debridement. MMODL / IJN: [id number] /
[~2022-08-04 08:00] MED LIST changes: +DEXAMETHASONE SOD PHOSPHATE 4 MG/ML 1 ML VIAL IV ONE; +HYDROmorphone 0.5 MG/0.5 ML SYRINGE IVP PRN; +LIDOCAINE 1% (10MG/ML) FOR IV START INTRADERMA PRN; -LIDOCAINE 1% 20 ML VIAL (10MG/ML) FOR IV START INTRADERMA PRN; +MIDAZOLAM 2 MG/2 ML VIAL IV PRN; +ONDANSETRON 4 MG/2 ML VIAL IVP ONE
[2022-08-04] MEDS ORDERED: ONDANSETRON 4 MG/2 ML VIAL ONE (08:49)
[2022-08-04] MEDS ORDERED: fentaNYL (PF) 50 MCG/ML 2 ML AMP IV ONE (09:00)
--- NOTE | 2022-08-04 09:14 | P.ANPRN ---
Procedure Note - Anesthesia - Nerve Block Performed Right Interscalene Time Out Performed: Yes (08:59) Date of Procedure: 08/04/22 Procedure Start Time: Procedure Stop Time: :05 Location of Patient: PreOp Indication: Acute Post-Operative Pain, Requested by Surgeon (Dr De La Cruz) Sedation Type: Sedate with meaningful contact maintained Preparation: Sterile Prep Position: Supine Catheter: None Needle Types: Pajunk Needle Gauge: Other (see comment) (22g) Ultrasound used to visualize needle placement: Yes Ultrasound used to observe medication spread: Yes Injectate: 0.5% Ropivacaine (see comment for volume) (20cc + Decadron 4mg) Blood Aspirated: No Pain Paresthesia on Injection Noted: No Resistance on Injection: Normal Image Stored and Saved: Yes Events: Uneventful and Well Tolerated
[2022-08-04] MEDS ORDERED: ROPIVACAINE 5 MG/ML 30 ML VIAL ONE (10:04)
[2022-08-04] MEDS ORDERED: LIDOCAINE 2% INJ 20 MG/ML (2 ML VIAL) ONE (10:04)
[2022-08-04] MEDS ORDERED: ePHEDrine 50 MG/ML 1 ML VIAL ONE (10:04)
[2022-08-04] MEDS ORDERED: NEOSTIGMINE 1 MG/ML 10 ML VIAL ONE (10:04)
[2022-08-04] MEDS ORDERED: SUCCINYLCHOLINE CHLORIDE 200 MG/10 ML VIAL IV ONE (10:04)
[2022-08-04] MEDS ORDERED: ROCURONIUM 10 MG/ML (5 ML VIAL) IV ONE (10:04)
[2022-08-04] MEDS ORDERED: GLYCOPYRROLATE 0.2 MG/ML 2 ML VIAL ONE (10:04)
[2022-08-04] MEDS ORDERED: MIDAZOLAM 2 MG/2 ML VIAL ONE (10:04)
[2022-08-04] MEDS ORDERED: fentaNYL (PF) 50 MCG/ML 2 ML AMP ONE (10:04)
[2022-08-04] MEDS ORDERED: DEXAMETHASONE SOD PHOSPHATE 4 MG/ML 1 ML VIAL ONE (10:04)
[2022-08-04] MEDS ORDERED: PROPOFOL 10 MG/ML 20 ML VIAL IV ONE (10:04)
--- NOTE | 2022-08-04 11:31 | P.OP ---
Date of Procedure: 08/04/22 Preoperative Diagnosis: Right shoulder impingement Postoperative Diagnosis: 1. Right shoulder rotator cuff tear 2. Right shoulder impingement 3. Right shoulder acromioclavicular joint osteoarthritis 4. Right shoulder partial long head biceps tendon tear Procedure(s) Performed: 1. Right shoulder arthroscopic rotator cuff repair 2. Right shoulder arthroscopic subacromial decompression 3. Right shoulder arthroscopic mingo procedure 4. Right shoulder arthroscopic debridement superficial labral tear Implants: 1Arthrex 4.75 swivel lock anchor Anesthesia: GETA, regional (Interscalene block) Surgeon: Brendon De La Cruz Fire Extinguisher Installer #1: Milad Eason Estimated Blood Loss (ml): 10 Pathology: none sent Condition: stable Disposition: PACU Indications for Procedure: 72-year-old patient seen with progressive right shoulder pain. After having treatment options discussed, she elected to proceed with arthroscopy. Operative Findings: See description of procedure Description of Procedure: Patient underwent an interscalene block by department of anesthesia. The patient was then taken to the operative suite. The patient underwent a general anesthetic by the department of anesthesia. The patient was placed into a lateral position and secured. There was appropriate padding of the bony prominence. Right shoulder was then prepped and draped in normal sterile orth opedic fashion. We placed the extremity in 10 pounds of longitudinal traction. A posterior incision was now made for a posterior working portal site. The trocar and cannula were inserted into the glenohumeral joint. Arthroscopy was initiated. Spinal needle was now inserted anteriorly, to ascertain the anterior working portal site. An incision was now made in that area, a trocar was inserted followed by a probe. There was superficial tearing of the anterior labrum. There were grade 1 chondromalacia changes of the glenohumeral joint. There was partial tearing and hyperemia involving the long head biceps tendon. I debrided out the superficial labral tears getting down to stable labral tissue. I performed an arthroscopic biceps tenotomy. The residual labrum was probed and was found to be stable. Instruments were now removed from the glenohumeral joint. Utilizing the posterior working portal site, the trocar and cannula were inserted into the subacromial space. Arthroscopy initiated. I made an incision 2 fingerbreadths lateral to the acromion. I introduced my trocar followed by my ArthroCare ablator. I now began ablating thick subacromial bursal tissue, which exposed the undersurface of the anterior acromion. There was diminished subacromial space. There was a very prominent anterior acromion. A motorized bur was introduced and a subacromial decompression was performed. I also excised some osteophytes off the inferior aspect of the distal clavicle. The AC joint was visualized and noted to be fairly arthritic. The motorized bur was introduced in the anterior portal site and a Mingo procedure was performed without difficulty, decompressing the AC joint nicely. I turned my attention to the rotator cuff. There was a 1 cm tear along the distal supraspinatus tendon. I debrided the margins getting down to stable tendon tissue. The defect/tear measured approximately 1.5 cm and was freely mobile over the footprint. I abraded the footprint with a motorized bur. With the assistance of Maury DE LA VEGA I now passed 2 everted mattress sutures through good bites of rotator cuff tendon. I punched the hole in the footprint area for insertion of an anchor. All 4 limbs of suture were passed through the eyelet of a Arthrex 4.75 swivel lock anchor. I placed the eyelet into our pre-punched hole. I held it in position while Maury DE LA VEGA tensioned all 4 limbs of suture and deployed the anchor with good fixation noted. All residual suture limbs were now clipped. We had good compression of the tendon along the entire footprint. Instruments now removed from the portal sites. All portal sites were approximated with nylon suture. Sterile dressings were applied followed by a shoulder sling. Milad DE LA VEGA assisted in this complex case. The patient was awakened, transferred to a bed, and taken to recovery in stable condition.
[2022-08-04 11:32] VITALS: TEMP 97
[2022-08-04 12:52] VITALS: BP 102/69; PULSE 48; RESP 14
[2022-08-04] MEDS ORDERED: LACTATED RINGERS 1,000 ML IV ONE (12:52)
== END 2022-08-04 13:20 | disposition home or self-care (01) ==
LOC: OR 08:00
PROVIDERS: ATTEND Orthopaedic Surgery
DX: M75.41 Impingement syndrome of right shoulder (principal); M19.011 Primary osteoarthritis, right shoulder; S43.431A Superior glenoid labrum lesion of right shoulder, initial encounter; M25.711 Osteophyte, right shoulder; G89.18 Other acute postprocedural pain; I10 Essential (primary) hypertension; K21.9 Gastro-esophageal reflux disease without esophagitis; X58.XXXA Exposure to other specified factors, initial encounter; Z90.49 Acquired absence of other specified parts of digestive tract; Z79.899 Other long term (current) drug therapy
CPT/HCPCS: 64415; 29827; 29826; 29824; C1713 ×2; C1894; J2250; J0330; J1100; J2710; J0690; J2405; J3010; J2795; J2704; J2001

== ENCOUNTER → 2023-10-14 | Outpatient (CLI) | payer MEDICARE, OTHER ==
--- NOTE | 2023-10-15 09:20 | CA ---
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 67 - 155 / 56 - 104 cm??? LV Systolic Volume MOD BP 14.6 cm??? 22 - 58 / 19 - 49 cm??? LV Ejection Fraction MOD BP 74.7 % >= 55 % LV Diastolic Volume MOD 4C 65.2 cm??? LV Systolic Volume MOD 4C 16.0 cm??? LV Ejection Fraction MOD 4C 75.4 % LV Diastolic Length 4C 7.4 cm LV Systolic Length 4C 5.5 cm LV Diastolic Volume MOD 2C 45.7 cm??? LV Systolic Volume MOD 2C 14.0 cm??? LV Ejection Fraction MOD 2C 69.4 % LV Diastolic Length 2C 6.5 cm LV Systolic Length 2C 5.5 cm LA Volume 55.7 cm??? 18 - 58 / 22 - 52 cm??? LA Volume Index 29.1 cm???/m??? 16 - 28 cm???/m??? Ascending Aorta Diameter 4.0 cm M-MODE Aortic Root Diameter MM 3.9 cm LA Systolic Diameter MM 3.3 cm LA Ao Ratio MM 0.9 AV Cusp Separation MM 1.8 cm DOPPLER AI Peak Velocity 331.4 cm/s AI Peak Gradient 43.9 mmHg AI Pressure Half Time 1578.3 ms MV Area PHT 2.5 cm??? Mitral E Point Velocity 76.1 cm/s Mitral A Point Velocity 96.0 cm/s Mitral E to A Ratio 0.8 MV Deceleration Time 307.1 ms TR Peak Velocity 236.0 cm/s TR Peak Gradient 22.3 mmHg Right Ventricular Systolic Press 25.9 mmHg FINDINGS Left Ventricle Left ventricular ejection fraction is estimated at 60-65 %. Moderately increased septal wall thickness. Moderately increased posterior wall thickness. Normal left ventricular systolic function with no obvious regional wall motion abnormalities. Left ventricular cavity size normal. Right Ventricle Normal right ventricular size and function. Right ventricular systolic pressure within normal limits. Right Atrium Mild right atrial dilatation. Left Atrium Mildly increased left atrial volume. Mitral Valve Structurally normal mitral valve. Trace mitral regurgitation. Aortic Valve Trileaflet aortic valve. Trace aortic regurgitation. No aortic stenosis. Tricuspid Valve Structurally normal tricuspid valve. Mild tricuspid regurgitation. Pulmonic Valve Structurally normal pulmonic valve. Trace pulmonic regurgitation. No pulmonic stenosis. Pericardium No pericardial or pleural effusion. Aorta Mildly dilated aortic annulus, 4.0cm CONCLUSIONS Left ventricular ejection fraction 60-65% Moderately increased left ventricle thickness RVSP 26 Trace mitral regurgitation Mild tricuspid regurgitation Aortic root 4.0 cm Previewed by: Dr. Henok Scott DO (Electronically Signed) Final Date: 15 October 2023 09:19
--- NOTE | 2023-10-23 15:16 | MM ---
Reason for Exam: Screening (asymptomatic). Last mammogram was performed 20 year(s) and 0 month(s) ago. Patient History: Menarche at age 15. First Full-Term at age 27. Postmenopausal. Maternal aunt had breast cancer, age 50. Risk Values: Christie 5 year model risk: 1.9%. NCI Lifetime model risk: 5.4%. Prior Study Comparison: 07/13/2002 Left Special View Mammogram, [facility]. 01/18/2003 Left Special View Mammogram, [facility]. 10/04/2003 Bilateral Special View Mammogram, [facility]. Tissue Density: There are scattered areas of fibroglandular density. Findings: Analyzed By CAD. The pattern is symmetrical. No suspicious groups of microcalcifications, spiculated or lobular masses, architectural distortion or other secondary signs of malignancy are mammographically apparent. Overall Assessment: Benign, BI-RAD 2 Management: Screening Mammogram of both breasts in 1 year. A negative mammogram report should not preclude additional follow up of suspicious palpable abnormalities. Patient should continue monthly self breast exam. A clinical breast exam by your physician is recommended on an annual basis and results should be correlated with mammographic findings. Note on Christie scores and lifetime risk: 1. A Christie score greater than 3% is considered moderate risk. If this is the case, consider specialist referral to assess eligibility for a risk reducing agent. 2. If overall lifetime risk for the development of breast cancer is 20% or higher, the patient may qualify for future screening with alternating mammogram and breast MRI. Electronically signed and approved by: Marciano Chavez D.O. Radiologis
== END | disposition home or self-care (01) ==
LOC: RADMAMWWP 15:21
PROVIDERS: ATTEND Family Medicine
DX: Z12.31 Encounter for screening mammogram for malignant neoplasm of breast (principal); I10 Essential (primary) hypertension; I71.21 Aneurysm of the ascending aorta, without rupture; R92.323 Mammographic fibroglandular density, bilateral breasts; Z78.0 Asymptomatic menopausal state; Z80.3 Family history of malignant neoplasm of breast; I08.1 Rheumatic disorders of both mitral and tricuspid valves
CPT/HCPCS: 77063; 77067; 93306